=== PATIENT | female | born 1950 | race Caucasian/White ===

== ENCOUNTER 2018-11-25 06:31 | Emergency (ER) | payer MEDICARE, SELFPAY ==
[2018-11-25 06:41] VITALS: BP 157/78; PULSE 96; RESP 18; TEMP 37.1; O2SAT 97
--- NOTE | 2018-11-25 06:47 | DI.COMBO_ITS ---
SYMPTOM/DIAGNOSIS: FELL, HIT HEAD, PAIN, ? FX RIGHT SHOULDER: There is a fracture at the surgical neck of the humerus. There is displacement and angulation as well as small comminuted fragments. There is no evidence of dislocation on the two views performed. The AC joint appears intact. IMPRESSION: Humeral neck fracture. RIGHT HUMERUS: There is a fracture of the surgical neck of the humerus. There is some displacement as well as angulation. A few small comminuted fragments are seen. The distal humerus appears intact. IMPRESSION: Fracture of the surgical neck of the humerus. LEFT KNEE: No fracture or hemarthrosis is seen. There are minimal degenerative changes. IMPRESSION: No acute abnormality. NONCONTRAST HEAD CT: No intracranial hemorrhage or skull fracture is seen. There is no significant atrophy or white matter changes. The sinuses and mastoid air cells appear clear where visualized. IMPRESSION: Negative head CT. CERVICAL SPINE CT: There is no evidence of fracture. Degenerative disc changes are seen, greatest at C 4-5 through C 6-7. Facet joint degenerative changes are also present. No pneumothorax is seen at the lung apices. IMPRESSION: Degenerative changes. No acute abnormality.
--- NOTE | 2018-11-25 06:56 | ED.GENADUL_ITS ---
Discharge Plan Disposition Patient Disposition: HOME Condition: Stable Discharge Details Chief Complaint: Orthopedic Clinical Impression: Fracture, humerus Primary Care Provider: Arnoldo Lopez ED Provider: Alisa Romano Home Meds and New Rx's Prescriptions: New oxycodone-acetaminophen [Percocet] 5-325 mg tablet 0.5 tab PO Q6H Qty: 5 RF: 0 Continued multivitamin [Daily Multi-Vitamin] 1 EACH tablet 1 tab PO DAILY RF: 0 aspirin [Aspir-81] 81 MG tablet,delayed release (DR/EC) 1 tab PO DAILY RF: 0 acetaminophen [Mapap Extra Strength] 500 MG tablet 1 tab PO DAILY RF: 0 docusate sodium [Colace] 100 MG capsule 100 mg PO TID PRN PRNQty: 30 RF: 0 diltiazem HCl [Cartia XT] 180 mg Capsule,Extended Release 24hr 180 mg PO BID RF: 0 irbesartan 150 mg Tablet 150 mg PO DAILY RF: 0 Discharge Instructions Instructions: Oxycodone/Acetaminophen (By mouth), Arm Fracture in Adults (ED), How to Use a Sling (GEN) Additional Instructions: Please return immediately to the emergency department if you develop any new or worsening symptoms or if you become otherwise concerned. It is extremely important that you make an appointment to be seen by an orthopedic surgeon, and also by your primary care doctor soon as possible in follow-up for this visit. Please do not take any sedating medications while you are taking Percocet. Also, please do not take any additional Tylenol while you are taking Percocet. It was a pleasure participating in your care in the emergency department today. Stand Alone Forms: Work Release Referrals: Tato Holguin MD [ [facility] STAFF PHYSICIAN] - Arnoldo Lopez [Primary Care Provider] - Discharge Data Discharge Date/Time-TO BE ENTERED AT DEPARTURE: 11/25/18 10:57 Medical Decision Making <Mark Casey DO - Last Filed: 11/25/18 23:06> This is a 68-year-old female who presents for evaluation after fall. Patient was on her porch when she slipped and hit her head, her right shoulder and her left knee. Notable pain in the right shoulder, minimal pain in the left knee on exam. No abnormalities on intracranial exam. No significant ligamentous abnormalities for the left knee, no significant joint laxity. We will update the patient's tetanus year. Due to the mechanism, as well as the patient's age we will get x-rays of the left knee, right shoulder as well as head and C-spine. The patient does not want any narcotics at this time, and we will start with acetaminophen. Differential includes proximal humeral fracture, or other osseous abnormalities for the other tender locations. With no C-spine, thoracic or lumbar spine pain, as well as no signs of trauma for the head I feel the intracranial bleed is unlikely. 7:42 AM We are waiting for all imaging at this time. Case will be signed out to my colleague Dr. Romano. <Alisa Romano MD - Last Filed: 12/03/18 13:28> Patient signed out to me at time of shift change by Dr. Casey with CT head, CT cervical spine, right humerus/shoulder x-ray, left knee x-ray pending. Imaging shows right humeral neck fracture, no other acute process. On reexamination the patient, she is reporting worsening pain and would like something more than Tylenol. Patient concerned about adverse effects of opiate pain medication, will give 2.5 mg oxycodone. Orthopedic surgery paged. Dr. Cortes of orthopedic surgery, who recommends basic sling as opposed to cuff and collar, outpt f/u with ortho. Patient placed in sling. She walked to the bathroom without issue, reporting no other pain at this point other than pain in the upper right arm, which is improved after oxycodone and ibuprofen. Plan for Rx oxycodone, local pharmacies do not stock 2.5 mg tabs, instructed patient to cut 5 mg tabs in half. She does have a pill cutter at home. I had a lengthy discussion with the patient regarding safe opiate use, return to emergency department precautions, home care, and importance of outpatient follow-up with orthopedic surgery and with her primary care doctor soon as possible. She verbalized understanding of the plan and is amenable Medical Records Medical records reviewed: Yes I reviewed the patient's medical records. Imaging Data Radiologic Study: Attestation: I personally reviewed and interpreted this imaging study as follows: Radiologist's impression: TECHNIQUE: XR Right shoulder complete 2 or more views. COMPARISON: CR RIGHT SHOULDER COMPLETE 03/19/2014 11:08 AM CR - XR humerus RT 11/25/2018 7:23:26 AM FINDINGS: Bones/joints: As on the humerus radiographs, there is an acute fracture through the humeral neck. This is mildly comminuted and moderately displaced, with moderate impaction and mild medial angulation. No other fracture is identified. The glenohumeral joint is normally aligned. There is mild acromioclavicular arthrosis without widening. No focal lytic or blastic lesion is identified. Soft tissues: There is associated soft tissue swelling. IMPRESSION: 1. Acute femoral neck fracture. 2. Mild acromioclavicular arthrosis. EXAM: CT Head Without Contrast EXAM DATE/TIME: 11/25/2018 6:49 AM CLINICAL HISTORY: 68 years old, female; Injury or trauma; Fall; Initial encounter; Blunt trauma TECHNIQUE: Axial computed tomography images of the head/brain without contrast. Coronal and sagittal reformatted images were created and reviewed. COMPARISON: CT HEAD AND CSPINE W/O CONTRAST 03/19/2014 10:45 AM (report not provided) FINDINGS: Brain: Patchy lucencies in the white matter are nonspecific but most suggestive of chronic microvascular ischemic disease. There is no evidence for large acute cortical infarct. No intracranial hemorrhage or extraaxial collection is identified. There is no significant intracranial mass effect. Ventricles: The ventricles and sulci are mildly prominent, in concordance with mild global atrophy. Bones/joints: Normal. No acute fracture. Sinuses: Normal as visualized. No acute sinusitis. Mastoid air cells: Normal as visualized. No mastoid effusion. Soft tissues: Unremarkable. Vasculature: Intracranial atherosclerotic vascular calcifications are again present. IMPRESSION: No CT evidence for acute intracranial abnormality. EXAM: XR Left Knee, 3 Views EXAM DATE/TIME: 11/25/2018 6:49 AM CLINICAL HISTORY: 68 years old, female; Injury or trauma; Fall; Initial encounter; Blunt trauma; Knee; Left TECHNIQUE: XR Left knee 3 views. COMPARISON: No relevant prior studies available. FINDINGS: Bones/joints: No acute fracture or dislocation is identified. A very small superior patellar enthesophyte is present. Soft tissues: The soft tissues, including in the suprapatellar region, appear grossly unremarkable. Vasculature: Atherosclerotic vascular calcifications are noted. IMPRESSION: 1. No acute fracture or dislocation identified. 2. Very small superior patellar enthesophyte. HPI <Mark Casey, - Last Filed: 11/25/18 23:06> General Date/Time Provider Initiated Documentation: 11/25/18 06:37 . HPI Narrative: This is a pleasant 68-year-old female with a past medical history of hypertension who presents today for evaluation after a fall. She is not on any blood thinners except for daily aspirin. Patient states that yesterday at 8 PM she was shoveling her porch when she slipped, hit her head, left knee, and right shoulder. She had no loss of consciousness and she was able to get up by herself after this. She recalls the entire event. She denies any significant head pain, does admit to some mild left knee pain, but primarily complains of right shoulder pain. Pain in the shoulder and right knee are made worse with palpation and use. She is able to ambulate without significant pain. She denies any associated numbness tingling or weakness. She denies any vision changes, headache, nausea, vomiting, diarrhea. She has no other complaints at this time. No other modifying factors Related Data Home Medications Medication Instructions Recorded Confirmed acetaminophen [Mapap Extra 1 tab PO DAILY 03/19/14 12/03/18 Strength] aspirin [Aspir-81] 1 tab PO DAILY 03/19/14 12/03/18 multivitamin [Daily Multi-Vitamin] 1 tab PO DAILY 03/19/14 12/03/18 docusate sodium [Colace] 100 mg PO TID PRN PRN #30 cap 03/22/14 12/03/18 diltiazem HCl [Cartia XT] 180 mg PO BID 11/25/18 12/03/18 irbesartan 150 mg PO DAILY 11/25/18 12/03/18 oxycodone-acetaminophen [Percocet] 0.5 tab PO Q6H #5 tab 11/25/18 12/03/18 Previous Rx's Medication Instructions Recorded docusate sodium [Colace] 100 mg PO TID PRN PRN #30 cap 03/22/14 oxycodone-acetaminophen [Percocet] 0.5 tab PO Q6H #5 tab 11/25/18 Allergies Allergy/AdvReac Type Severity Reaction Status Date / Time aloe vera Allergy Intermediate Swelling/Ed Unverified 12/03/18 10:57 harlan wheat Allergy Intermediate Swelling/Ed Unverified 12/03/18 10:57 harlan papaya Allergy Mild Skin Rash Unverified 12/03/18 10:57 pineapple Allergy Mild Skin Rash Uncoded 12/03/18 10:57 General Stated Complaint: Orthopedic KAREL: 3 Review of Systems <Mark Casey DO - Last Filed: 11/25/18 23:06> Review of Systems All systems reviewed & are unremarkable except as noted in HPI and below PFSH <Mark Casey DO - Last Filed: 11/25/18 23:06> Social History Smoking/Tobacco Use Status: Current-Occasional Exam <Mark Casey DO - Last Filed: 11/25/18 23:06> Narrative Exam Narrative: 1.Const: Well-nourished, Well-developed, appearing stated age 2.Eyes: PERRL, no conjunctival injection, and symmetrical lids. 3.ENT: Atraumatic external nose and ears. Moist MM. Neck: Symmetric, trachea midline, No thyromegaly. There is no evidence of raccoon eyes, wright sign, CSF rhinorrhea, mastoid tenderness, cranial crepitus, hemotympanum, exophthalmos, or hyphema. Patient demonstrates intact dentition with no signs of tooth avulsion or fracture, no signs of jaw deformity, no evidence of a LeFort's fracture, with an intact palate, nose and orbital region. There is no evidence of a nasal septal hematoma. No proptosis. Jaw closes symmetrically. Airway is clear. 4.CVS: +S1/S2, No murmurs or gallops. Peripheral pulses 2+ and equal in all extremities. Brisk capillary refill in all extremities. 5.RESP: Unlabored respiratory effort. Clear to auscultation bilaterally. No wheezes rales or rhonchi 6.GI: Soft, Nontender/Nondistended, No hepatosplenomegaly. No guarding or rebound. 7.MSK: Normocephalic, Extremities w/o deformity. No cyanosis or clubbing, right upper extremity demonstrates notable pain and tenderness on palpation of the right shoulder over all aspects, as well as the proximal humerus. No evidence of significant deformity. Patient demonstrates good flexion extension at the elbow, brisk capillary refill in both hands, and normal sensation including excellent two-point discrimination in the hands and fingers bilaterally. Radial pulses are +2 bilaterally. There is a mild abrasion over the patient's left knee. Mild pain with movement on anterior drawer testing. No pain with varus or valgus stressing. Mild pain on palpation over the knee/patella. No deformity, excellent 5 out of 5 plantar dorsiflexion strength. Sensation is intact distally to the knee bilaterally. Dorsalis pedis pulses present. Good capillary refill. No midline C-spine tenderness. No tenderness on palpation of the scalp. No evidence of abrasions or bruise. 8.Skin: Warm, Dry. No rashes or lesions. Small abrasion over the left knee. 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 Sensation grossly intact, no focal neurologic deficits. 10.Psych: (AAO) x3. Appropriate mood and affect Course <Mark Casey DO - Last Filed: 11/25/18 23:06> Vital Signs Temperature 37.1 C 11/25/18 06:41 Pulse 96 H 11/25/18 06:41 Respiratory Rate 18 11/25/18 06:41 Blood Pressure 157/78 H 11/25/18 06:41 Pulse Oximetry 97 11/25/18 06:41 Temperature 37.1 C 11/25/18 06:41 Temperature Source Temporal Artery Scan 11/25/18 06:41 Pulse 96 H 11/25/18 06:41 Respiratory Rate 18 11/25/18 06:41 Respiratory Effort 11/25/18 06:41 Blood Pressure 157/78 H 11/25/18 06:41 Pulse Oximetry 97 11/25/18 06:41 Oxygen Delivery Method Room Air 11/25/18 06:41 Oxygen Flow Rate 0 11/25/18 06:41 Pain Level 10 11/25/18 06:41 Sign Out <Mark Casey DO - Last Filed: 11/25/18 23:06> Sign Out Data: Sign Out Comment: pending rad results, concern for humerus fx Last updated by Mark Casey DO at 11/25/18 07:45
[2018-11-25] MEDS: Acetaminophen 500 MG TAB 1000 MG PO (07:00)
--- NOTE | 2018-11-25 07:48 | DI.VRAD_ITS ---
EXAM: CT Head Without Contrast EXAM DATE/TIME: 11/25/2018 6:49 AM CLINICAL HISTORY: 68 years old, female; Injury or trauma; Fall; Initial encounter; Blunt trauma TECHNIQUE: Axial computed tomography images of the head/brain without contrast. Coronal and sagittal reformatted images were created and reviewed. COMPARISON: CT HEAD AND CSPINE W/O CONTRAST 03/19/2014 10:45 AM (report not provided) FINDINGS: Brain: Patchy lucencies in the white matter are nonspecific but most suggestive of chronic microvascular ischemic disease. There is no evidence for large acute cortical infarct. No intracranial hemorrhage or extraaxial collection is identified. There is no significant intracranial mass effect. Ventricles: The ventricles and sulci are mildly prominent, in concordance with mild global atrophy. Bones/joints: Normal. No acute fracture. Sinuses: Normal as visualized. No acute sinusitis. Mastoid air cells: Normal as visualized. No mastoid effusion. Soft tissues: Unremarkable. Vasculature: Intracranial atherosclerotic vascular calcifications are again present. IMPRESSION: No CT evidence for acute intracranial abnormality. EXAM: CT Cervical Spine Without Contrast EXAM DATE/TIME: 11/25/2018 6:49 AM CLINICAL HISTORY: 68 years old, female; Injury or trauma; Fall; Initial encounter; Blunt trauma TECHNIQUE: Axial computed tomography images of the cervical spine without intravenous contrast. All CT scans at this facility use at least one of these dose optimization techniques: automated exposure control; mA and/or kV adjustment per patient size (includes targeted exams where dose is matched to clinical indication); or iterative reconstruction. Coronal and sagittal reformatted images were created and reviewed. COMPARISON: CT HEAD AND CSPINE W/O CONTRAST 03/19/2014 10:45 AM (report not provided) FINDINGS: Vertebral body heights are intact. Alignment is maintained. No acute fracture is identified. The prevertebral soft tissues are not significantly swollen. The lung apices are not included. There is multilevel spondylosis with variable osteophytic encroachment of several neural foramina. This appears generally mildly progressive. CT is not optimal for the evaluation of the discs, neural foramina or spinal canal or cord. Question spinal stenosis at C5-6. IMPRESSION: 1. No acute fracture or dislocation identified. 2. Spondylosis with question of spinal stenosis at C5-6. The discs and integrity of the cord could be better evaluated by means of MRI as clinically appropriate. Dictated and Authenticated by: Riki Ballard MD. Ordering:ONI Flores MD
--- NOTE | 2018-11-25 07:52 | DI.VRAD_ITS ---
EXAM: XR Right Humerus, 2 or More Views EXAM DATE/TIME: 11/25/2018 6:49 AM CLINICAL HISTORY: 68 years old, female; Injury or trauma; Fall; Initial encounter; Blunt trauma (contusions or hematomas; Arm, upper; Right TECHNIQUE: XR Right humerus 2 or more views. COMPARISON: No relevant prior studies available. FINDINGS: Bones/joints: There is an acute, mildly displaced and comminuted fracture through the humeral neck. No other fracture is identified. Soft tissues: There is mild associated soft tissue swelling. IMPRESSION: Acute humeral neck fracture. Dictated and Authenticated by: Riki Ballard MD. Ordering:ONI Flores MD
--- NOTE | 2018-11-25 07:54 | DI.VRAD_ITS ---
EXAM: XR Left Knee, 3 Views EXAM DATE/TIME: 11/25/2018 6:49 AM CLINICAL HISTORY: 68 years old, female; Injury or trauma; Fall; Initial encounter; Blunt trauma; Knee; Left TECHNIQUE: XR Left knee 3 views. COMPARISON: No relevant prior studies available. FINDINGS: Bones/joints: No acute fracture or dislocation is identified. A very small superior patellar enthesophyte is present. Soft tissues: The soft tissues, including in the suprapatellar region, appear grossly unremarkable. Vasculature: Atherosclerotic vascular calcifications are noted. IMPRESSION: 1. No acute fracture or dislocation identified. 2. Very small superior patellar enthesophyte. Dictated and Authenticated by: Riki Ballard MD. Ordering:ONI Flores MD
--- NOTE | 2018-11-25 07:56 | DI.VRAD_ITS ---
EXAM: XR Right Shoulder Complete, 2 or More Views EXAM DATE/TIME: 11/25/2018 7:48 AM CLINICAL HISTORY: 68 years old, female; Injury or trauma; Fall; Initial encounter; Blunt trauma (contusions or hematomas; Shoulder; Right TECHNIQUE: XR Right shoulder complete 2 or more views. COMPARISON: CR RIGHT SHOULDER COMPLETE 03/19/2014 11:08 AM CR - XR humerus RT 11/25/2018 7:23:26 AM FINDINGS: Bones/joints: As on the humerus radiographs, there is an acute fracture through the humeral neck. This is mildly comminuted and moderately displaced, with moderate impaction and mild medial angulation. No other fracture is identified. The glenohumeral joint is normally aligned. There is mild acromioclavicular arthrosis without widening. No focal lytic or blastic lesion is identified. Soft tissues: There is associated soft tissue swelling. IMPRESSION: 1. Acute femoral neck fracture. 2. Mild acromioclavicular arthrosis. Dictated and Authenticated by: Riki Ballard MD. Ordering:ONI Flores MD
--- NOTE | 2018-11-25 08:53 | W.ED.FU ---
Patient signed out to me at time of shift change by Dr. Casey with CT head, CT cervical spine, right humerus/shoulder x-ray, left knee x-ray pending. Imaging shows right humeral neck fracture, no other acute process. On reexamination the patient, she is reporting worsening pain and would like something more than Tylenol. Plan for oxycodone. Orthopedic surgery paged.
[2018-11-25] MEDS: oxyCODONE 5 MG TAB PO (09:04)
[2018-11-25] MEDS: Ondansetron O.D.T. 4 MG TABEF PO (09:05)
[2018-11-25 09:46] VITALS: BP 142/71; PULSE 84; RESP 16; TEMP 37; O2SAT 92
[2018-11-25] MEDS: Ibuprofen 400 MG TAB PO (10:48)
== END 2018-11-25 10:57 | disposition home or self-care (01) ==
PROVIDERS: Emergency Provider Student in an Organized Health Care Education/Training Program; PCP Neuromusculoskeletal Medicine & OMM
DX: S42.211A Unspecified displaced fracture of surgical neck of right humerus, initial encounter for closed fracture (principal); M25.561 Pain in right knee; S09.90XA Unspecified injury of head, initial encounter; W01.198A Fall on same level from slipping, tripping and stumbling with subsequent striking against other object, initial encounter; Y93.H1 Activity, digging, shoveling and raking; E11.9 Type 2 diabetes mellitus without complications; I10 Essential (primary) hypertension
CPT/HCPCS: 23600; 73562; 90471; 99284; 70450; 72125; 73020; 73060; 99283; L3650

== ENCOUNTER 2018-12-03 11:07 | Outpatient (CLI) | payer MEDICARE, SELFPAY ==
--- NOTE | 2018-12-03 11:03 | DI.RAD_ITS ---
SYMPTOMS/DIAGNOSIS: F/U FX RIGHT SHOULDER: Comparison is made with [id number]. There is a question of increased lucency around the comminuted fracture of the proximal humerus when compared with the previous exam vs differences in projection. There is also apparent inferior subluxation of the humeral head when compared with the previous exam.
== END 2018-12-03 11:27 ==
PROVIDERS: PCP Neuromusculoskeletal Medicine & OMM; Referring Provider Neuromusculoskeletal Medicine & OMM; Visit Provider Orthopaedic Surgery
DX: S42.221A 2-part displaced fracture of surgical neck of right humerus, initial encounter for closed fracture (principal); W01.0XXA Fall on same level from slipping, tripping and stumbling without subsequent striking against object, initial encounter
CPT/HCPCS: 99201; 99213; 73030

== ENCOUNTER 2018-12-31 10:13 | Outpatient (CLI) | payer MEDICARE, SELFPAY ==
--- NOTE | 2018-12-31 10:10 | DI.RAD_ITS ---
SYMPTOMS/DIAGNOSIS: FOLLOW UP RIGHT SHOULDER: Comparison is made with [id number]. Two views were performed. There is a question of increased displacement of the proximal humeral fracture vs differences in projection when compared with the previous exam. Mild inferior subluxation of the humeral head relative to the glenoid is unchanged.
== END 2018-12-31 10:33 ==
PROVIDERS: PCP Neuromusculoskeletal Medicine & OMM; Referring Provider Neuromusculoskeletal Medicine & OMM; Visit Provider Orthopaedic Surgery
DX: S42.224D 2-part nondisplaced fracture of surgical neck of right humerus, subsequent encounter for fracture with routine healing (principal); W01.0XXD Fall on same level from slipping, tripping and stumbling without subsequent striking against object, subsequent encounter
CPT/HCPCS: 99213; 73030

== ENCOUNTER 2019-01-28 10:31 | Outpatient (CLI) | payer MEDICARE, SELFPAY ==
--- NOTE | 2019-01-28 10:28 | DI.RAD_ITS ---
SYMPTOMS/DIAGNOSIS: F/U FX RIGHT SHOULDER: When compared with the prior examination of 12/31/18, again noted is the comminuted fracture of the proximal humerus. There has been no change in the status of the fracture when compared with the previous images.
== END 2019-01-28 10:51 ==
PROVIDERS: PCP Neuromusculoskeletal Medicine & OMM; Referring Provider Neuromusculoskeletal Medicine & OMM; Visit Provider Orthopaedic Surgery
DX: S42.224D 2-part nondisplaced fracture of surgical neck of right humerus, subsequent encounter for fracture with routine healing; X58.XXXD Exposure to other specified factors, subsequent encounter
CPT/HCPCS: 99211; 99212; 73030

== ENCOUNTER 2019-02-25 11:43 | Outpatient (CLI) | payer MEDICARE, SELFPAY ==
--- NOTE | 2019-02-25 10:35 | DI.RAD_ITS ---
SYMPTOMS/DIAGNOSIS: F/U RIGHT PROXIMAL HUMERAL FRACTURE RIGHT SHOULDER: Two views. Comparison is 01/28/19. There has been no change in alignment or appearance of the fracture involving the proximal right humerus. No new fractures or dislocations are appreciated. Degenerative changes are seen at the acromioclavicular joint.
== END 2019-02-25 12:03 ==
PROVIDERS: PCP Neuromusculoskeletal Medicine & OMM; Referring Provider Neuromusculoskeletal Medicine & OMM; Visit Provider Orthopaedic Surgery
DX: S42.224D 2-part nondisplaced fracture of surgical neck of right humerus, subsequent encounter for fracture with routine healing (principal); X58.XXXD Exposure to other specified factors, subsequent encounter
CPT/HCPCS: 99212; 99213; 73030

== ENCOUNTER 2019-04-22 10:27 | Outpatient (CLI) | payer MEDICARE, SELFPAY ==
--- NOTE | 2019-04-22 10:23 | DI.RAD_ITS ---
SYMPTOM/DIAGNOSIS: F/U RIGHT HUMERAL FRACTURE RIGHT SHOULDER: Comparison is made with 25 February 2019 Again noted is a nonunited fracture of the proximal humerus. There is further separation of the fracture fragments when compared with previous exams. There is continued inferior subluxation of the humeral head.
== END 2019-04-22 10:47 ==
PROVIDERS: PCP Neuromusculoskeletal Medicine & OMM; Referring Provider Neuromusculoskeletal Medicine & OMM; Visit Provider Orthopaedic Surgery
DX: S42.201K Unspecified fracture of upper end of right humerus, subsequent encounter for fracture with nonunion; X58.XXXD Exposure to other specified factors, subsequent encounter; I10 Essential (primary) hypertension; E11.9 Type 2 diabetes mellitus without complications
CPT/HCPCS: 99213; 73030

== ENCOUNTER 2019-05-01 10:09 | Emergency (ER) | payer MEDICARE, SELFPAY ==
[2019-05-01 10:15] VITALS: BP 181/94; PULSE 91; RESP 16; TEMP 36.7; O2SAT 98
--- NOTE | 2019-05-01 10:25 | W.ED.GENAD ---
Discharge Plan Disposition Patient Disposition: HOME Discharge Details Chief Complaint: Laceration Clinical Impression: Laceration of earlobe Primary Care Provider: Arnoldo Lopez ED Provider: Alexey Romano Home Meds and New Rx's Prescriptions: Continued multivitamin [Daily Multi-Vitamin] 1 EACH tablet 1 tab PO DAILY RF: 0 aspirin [Aspir-81] 81 MG tablet,delayed release (DR/EC) 1 tab PO DAILY RF: 0 acetaminophen [Mapap Extra Strength] 500 MG tablet 1 tab PO DAILY RF: 0 docusate sodium [Colace] 100 MG capsule 100 mg PO TID PRN PRNQty: 30 RF: 0 diltiazem HCl [Cartia XT] 180 mg Capsule,Extended Release 24hr 360 mg PO DAILY RF: 0 irbesartan 150 mg Tablet 150 mg PO DAILY RF: 0 Discharge Instructions Instructions: Skin Adhesive Care (ED) Additional Instructions: Please contact your primary care physician to arrange follow-up. Return to the ER for any worsening or new concerning symptoms. Referrals: Arnoldo Lopez [Primary Care Provider] - Medical Decision Making 68-year-old female here with tiny laceration right earlobe with venous bleeding. LET applied with direct pressure. Bleeding controlled. Wound closed with skin adhesive. Hemostasis achieved. Tetanus is up-to-date. Usual and customary discharge instructions were provided. HPI General Mode of arrival: ambulatory. Date/Time Provider Initiated Documentation: 05/01/19 10:18. Limitations to Documentation: no limitations. Information obtained by: patient. HPI Narrative: 68-year-old female on aspirin here with laceration to right earlobe. Patient notes that she smacked her right ear and attempt to kill a flying insect that landed on her ear and she sustained laceration that has been bleeding. This occurred just prior to arrival. Bleeding has been heavy and persisting. Bleeding improved with holding pressure. No sensation of foreign body in the ear. Related Data Home Medications Medication Instructions Recorded Confirmed acetaminophen [Mapap Extra 1 tab PO DAILY 03/19/14 05/01/19 Strength] aspirin [Aspir-81] 1 tab PO DAILY 03/19/14 05/01/19 multivitamin [Daily Multi-Vitamin] 1 tab PO DAILY 03/19/14 05/01/19 docusate sodium [Colace] 100 mg PO TID PRN PRN #30 cap 03/22/14 05/01/19 diltiazem HCl [Cartia XT] 360 mg PO DAILY 11/25/18 05/01/19 irbesartan 150 mg PO DAILY 11/25/18 05/01/19 Previous Rx's Medication Instructions Recorded docusate sodium [Colace] 100 mg PO TID PRN PRN #30 cap 03/22/14 Allergies Allergy/AdvReac Type Severity Reaction Status Date / Time aloe vera Allergy Intermediate Swelling/Ed Unverified 05/01/19 10:18 harlan wheat Allergy Intermediate Swelling/Ed Unverified 05/01/19 10:18 harlan papaya Allergy Mild Skin Rash Unverified 05/01/19 10:18 pineapple Allergy Mild Skin Rash Uncoded 05/01/19 10:18 General Stated Complaint: RashLesion KAREL: 4 Review of Systems Integumentary/Breasts Reports as per HPI Hematologic/Lymphatic Denies easy bleeding and Denies easy bruising PFSH Social History Smoking/Tobacco Use Status: Current-Occasional Drug use: Never Do you feel safe in your relationship?: Yes Exam Const General: cooperative and healthy appearing Orientation: alert and awake HENMT Ears: TM normal on the right, EAC's normal (rt) and external ear abnormal (2 mm laceration right inner earlobe with venous bleeding) Skin Trauma: laceration (as noted above) Neuro General: alert and awake Cognition: normal cognition Course Vital Signs Temperature 36.7 C 05/01/19 10:15 Pulse 91 H 05/01/19 10:15 Respiratory Rate 16 05/01/19 10:15 Blood Pressure 181/94 H 05/01/19 10:15 Pulse Oximetry 98 05/01/19 10:15 Temperature 36.7 C 05/01/19 10:15 Pulse 91 H 05/01/19 10:15 Respiratory Rate 16 05/01/19 10:15 Respiratory Effort Non-Labored 05/01/19 10:15 Blood Pressure 181/94 H 05/01/19 10:15 Blood Pressure Position Sitting 05/01/19 10:15 Pulse Oximetry 98 05/01/19 10:15 Oxygen Delivery Method Room Air 05/01/19 10:15 Oxygen Flow Rate 0 05/01/19 10:15 Pain Level 0 05/01/19 10:15 Procedures Laceration Laceration 1: Site: other (ear) Side (If applicable): right Size (cm): 0.1 Description: other (punctate) Depth: simple, single layer Local Anesthetic: other anesthetic Skin layer closed with: other (skin adhesive)
--- NOTE | 2019-05-01 10:29 | ED.GENADUL_ITS ---
Discharge Plan Disposition Patient Disposition: HOME Discharge Details Chief Complaint: Laceration Clinical Impression: Laceration of earlobe Primary Care Provider: Arnoldo Lopez ED Provider: Alexey Romano Home Meds and New Rx's Prescriptions: Continued multivitamin [Daily Multi-Vitamin] 1 EACH tablet 1 tab PO DAILY RF: 0 aspirin [Aspir-81] 81 MG tablet,delayed release (DR/EC) 1 tab PO DAILY RF: 0 acetaminophen [Mapap Extra Strength] 500 MG tablet 1 tab PO DAILY RF: 0 docusate sodium [Colace] 100 MG capsule 100 mg PO TID PRN PRNQty: 30 RF: 0 diltiazem HCl [Cartia XT] 180 mg Capsule,Extended Release 24hr 360 mg PO DAILY RF: 0 irbesartan 150 mg Tablet 150 mg PO DAILY RF: 0 Discharge Instructions Instructions: Skin Adhesive Care (ED) Additional Instructions: Please contact your primary care physician to arrange follow-up. Return to the ER for any worsening or new concerning symptoms. Referrals: Arnoldo Lopez [Primary Care Provider] - Medical Decision Making 68-year-old female here with tiny laceration right earlobe with venous bleeding. LET applied with direct pressure. Bleeding controlled. Wound closed with skin adhesive. Hemostasis achieved. Tetanus is up-to-date. Usual and customary discharge instructions were provided. HPI General Mode of arrival: ambulatory . Date/Time Provider Initiated Documentation: 05/01/19 10:18 . Limitations to Documentation: no limitations . Information obtained by: patient . HPI Narrative: 68-year-old female on aspirin here with laceration to right earlobe. Patient notes that she smacked her right ear and attempt to kill a flying insect that landed on her ear and she sustained laceration that has been bleeding. This occurred just prior to arrival. Bleeding has been heavy and persisting. Bleeding improved with holding pressure. No sensation of foreign body in the ear. Related Data Home Medications Medication Instructions Recorded Confirmed acetaminophen [Mapap Extra 1 tab PO DAILY 03/19/14 05/01/19 Strength] aspirin [Aspir-81] 1 tab PO DAILY 03/19/14 05/01/19 multivitamin [Daily Multi-Vitamin] 1 tab PO DAILY 03/19/14 05/01/19 docusate sodium [Colace] 100 mg PO TID PRN PRN #30 cap 03/22/14 05/01/19 diltiazem HCl [Cartia XT] 360 mg PO DAILY 11/25/18 05/01/19 irbesartan 150 mg PO DAILY 11/25/18 05/01/19 Previous Rx's Medication Instructions Recorded docusate sodium [Colace] 100 mg PO TID PRN PRN #30 cap 03/22/14 Allergies Allergy/AdvReac Type Severity Reaction Status Date / Time aloe vera Allergy Intermediate Swelling/Ed Unverified 05/01/19 10:18 harlan wheat Allergy Intermediate Swelling/Ed Unverified 05/01/19 10:18 harlan papaya Allergy Mild Skin Rash Unverified 05/01/19 10:18 pineapple Allergy Mild Skin Rash Uncoded 05/01/19 10:18 General Stated Complaint: RashLesion KAREL: 4 Review of Systems Integumentary/Breasts Reports as per HPI Hematologic/Lymphatic Denies easy bleeding and Denies easy bruising PFSH Social History Smoking/Tobacco Use Status: Current-Occasional Drug use: Never Do you feel safe in your relationship?: Yes Exam Const General: cooperative and healthy appearing Orientation: alert and awake HENMT Ears: TM normal on the right, EAC's normal (rt) and external ear abnormal (2 mm laceration right inner earlobe with venous bleeding) Skin Trauma: laceration (as noted above) Neuro General: alert and awake Cognition: normal cognition Course Vital Signs Temperature 36.7 C 05/01/19 10:15 Pulse 91 H 05/01/19 10:15 Respiratory Rate 16 05/01/19 10:15 Blood Pressure 181/94 H 05/01/19 10:15 Pulse Oximetry 98 05/01/19 10:15 Temperature 36.7 C 05/01/19 10:15 Pulse 91 H 05/01/19 10:15 Respiratory Rate 16 05/01/19 10:15 Respiratory Effort Non-Labored 05/01/19 10:15 Blood Pressure 181/94 H 05/01/19 10:15 Blood Pressure Position Sitting 05/01/19 10:15 Pulse Oximetry 98 05/01/19 10:15 Oxygen Delivery Method Room Air 05/01/19 10:15 Oxygen Flow Rate 0 05/01/19 10:15 Pain Level 0 05/01/19 10:15 Procedures Laceration Laceration 1: Site: other (ear) Side (If applicable): right Size (cm): 0.1 Description: other (punctate) Depth: simple, single layer Local Anesthetic: other anesthetic Skin layer closed with: other (skin adhesive)
[2019-05-01] MEDS: Lidocaine/Epinephri/Tetracaine Topical Gel 3 ML TP (11:15)
== END 2019-05-01 11:52 | disposition home or self-care (01) ==
PROVIDERS: Emergency Provider Student in an Organized Health Care Education/Training Program; PCP Neuromusculoskeletal Medicine & OMM
DX: S01.311A Laceration without foreign body of right ear, initial encounter (principal); Z79.82 Long term (current) use of aspirin; X58.XXXA Exposure to other specified factors, initial encounter
CPT/HCPCS: 12011

== ENCOUNTER 2021-02-08 09:02 | Emergency (ER) | payer MEDICARE, SELFPAY ==
[2021-02-08 09:07] VITALS: BP 156/76; PULSE 96; RESP 16; TEMP 36.7; O2SAT 98
--- NOTE | 2021-02-08 09:24 | ED.GENADUL_ITS ---
Discharge Plan Disposition Patient Disposition: HOME Condition: Stable Discharge Details Clinical Impression: Abrasion of ear Primary Care Provider: Arnoldo Lopez ED Provider: Wilmer Moore Home Meds and New Rx's Prescriptions: Continued cholecalciferol (vitamin D3) 2,000 unit capsule 2,000 unit PO DAILY RF: 0 calcium pantothenate 500 mg tablet 500 mg PO DAILY RF: 0 multivitamin [Daily Multi-Vitamin] 1 EACH tablet 1 tab PO DAILY RF: 0 aspirin [Aspir-81] 81 MG tablet,delayed release (DR/EC) 1 tab PO DAILY RF: 0 acetaminophen [Mapap Extra Strength] 500 MG tablet 1 tab PO DAILY RF: 0 docusate sodium [Colace] 100 MG capsule 100 mg PO TID PRN PRNQty: 30 RF: 0 diltiazem HCl [Cartia XT] 180 mg Capsule,Extended Release 24hr 360 mg PO DAILY RF: 0 irbesartan 150 mg Tablet 150 mg PO DAILY RF: 0 Discharge Instructions Instructions: Abrasion (ED) Additional Instructions: Dermabond applied to the ear abrasion without difficulty. Bleeding is controlled. Dermabond will come off on its own in the next 5-7 days. Please watch for new or worsening symptoms and return to the ER for any concerns Medical Decision Making 70-year-old female presents for right ear abrasion. She denies chronic anticoagulation. Has no additional concerns or complaints. She was able to get the bleeding controlled on her own but is requesting that Dermabond be applied. Patient appears well, stable, nontoxic. Hemodynamically stable. No petechiae rash. Will place Dermabond on the abrasion. Medical Records Medical records reviewed: Yes I reviewed the patient's medical records. HPI General Mode of arrival: ambulatory . Date/Time Provider Initiated Documentation: 02/08/21 09:02 . Limitations to Documentation: no limitations . Information obtained by: patient . HPI Narrative: This is a 70-year-old female, takes a baby aspirin daily, presenting for a right ear abrasion. She states that 1 year ago she accidentally cut her ear, had difficulty stopping the bleeding, and required Dermabond. Today while in the shower she must have accidentally struck her ear. She noticed blood, was able to control the bleeding with pressure but is requesting that we applied Dermabond so that it does not begin bleeding again. She denies any other concerns or complaints. Denies ear pain or drainage. She denies easy bleeding or bruising. No addition al concerns or complaints. Related Data Home Medications Medication Instructions Recorded Confirmed acetaminophen [Mapap Extra 1 tab PO DAILY 03/19/14 02/08/21 Strength] aspirin [Aspir-81] 1 tab PO DAILY 03/19/14 02/08/21 multivitamin [Daily Multi-Vitamin] 1 tab PO DAILY 03/19/14 02/08/21 docusate sodium [Colace] 100 mg PO TID PRN PRN #30 cap 03/22/14 02/08/21 diltiazem HCl [Cartia XT] 360 mg PO DAILY 11/25/18 02/08/21 irbesartan 150 mg PO DAILY 11/25/18 02/08/21 calcium pantothenate 500 mg tablet 500 mg PO DAILY 06/11/19 02/08/21 cholecalciferol (vitamin D3) 50 2,000 unit PO DAILY 06/11/19 02/08/21 mcg (2,000 unit) capsule Previous Rx's Medication Instructions Recorded docusate sodium [Colace] 100 mg PO TID PRN PRN #30 cap 03/22/14 Allergies Allergy/AdvReac Type Severity Reaction Status Date / Time aloe vera Allergy Intermediate Swelling/Ed Unverified 02/08/21 09:09 harlan wheat Allergy Intermediate Swelling/Ed Unverified 02/08/21 09:09 harlan papaya Allergy Mild Skin Rash Unverified 02/08/21 09:09 pineapple Allergy Mild Skin Rash Uncoded 02/08/21 09:09 General Stated Complaint: Laceration KAREL: 4 Review of Systems Constitutional Constitutional: Denies fever(s) ENT Ears, Nose, Mouth, and Throat: Denies ear discharge and Denies otalgia Hematologic/Lymphatic Hematologic/Lymphatic: Denies easy bleeding and Denies easy bruising [facility] Medical History Pelvic organ prolapse quantification stage 4 rectocele Rx with surgery at [facility] [place] [facility] U[facility] 08/2019. Surgical History H/O vaginal surgery 09/23/19. Colpocleisis with vaginectomy to treat POP. Hx of bilateral oophorectomy in her 30's at time of hysterectomy for endometriosis. On progesterone replacement after surgery. Social History Smoking/Tobacco Use Status: Former Tobacco Use Smoking risk assessment performed?: Yes Alcohol Intake: current Alcohol Intake frequency: 0-2 drinks per day Drug use: Never Substance use type: does not use Household members: other Details: lives alone Number of Children: 1 current occupation: retired secretary [employer] Do you feel safe at home: Yes Do you feel safe in your relationship?: Yes Victim of sexual abuse: No Additional Social history: Daughter is Ana. 45yo lives locally. Female Reproductive History Menstrual Menopause type: surgical (1997. Treatment of endometriosis) History History 1 Para Hx # Term Pregnancies 1 Multiple births Hx # Pregnancies Ectopic pregnancies AB induced Hx Number of Living Children AB spontaneous Exam Const General: cooperative, healthy appearing, comfortable and no acute distress Orientation: alert, awake and oriented x3 HENMT Head: normal to inspection, no palpable skull fracture, normocephalic and atraumatic Ears: TM's normal bilaterally and EAC's normal Outer ear/TM images: 1. Abrasion. No tenderness or bleeding. No erythema, warmth. Face and sinus: normal facial exam Mouth: moist mucous membranes Eyes General: appearance normal, both eyes and all related structures Conjunctivae: conjunctivae normal Neck Neck: normal visual inspection, full ROM, trachea midline and supple Resp Effort & Inspection: normal respiratory effort and able to speak in complete sentences Skin General skin exam: no rashes or lesions noted Neuro General: patient alert, patient awake, moves all extremities and no focal motor deficits Sensory Exam: no sensory deficits noted Psych Appearance: grossly normal Mental Status: mental status grossly normal Course Vital Signs Vital signs: Vital Signs Temperature 36.7 C 02/08/21 09:07 Pulse 96 H 02/08/21 09:07 Respiratory Rate 16 02/08/21 09:07 Blood Pressure 156/76 H 02/08/21 09:07 Pulse Oximetry 98 02/08/21 09:07 Temperature 36.7 C 02/08/21 09:07 Temperature Source Skin 02/08/21 09:07 Pulse 96 H 02/08/21 09:07 Respiratory Rate 16 02/08/21 09:07 Respiratory Effort 02/08/21 09:12 Blood Pressure 156/76 H 02/08/21 09:07 Blood Pressure Position Sitting 02/08/21 09:07 Pulse Oximetry 98 02/08/21 09:07 Oxygen Delivery Method Room Air 02/08/21 09:07 Oxygen Flow Rate 0 02/08/21 09:07 Pain Level 0 02/08/21 09:07 Procedures Other Description: Dermabond applied to right ear abrasion. Patient tolerated well without complication
== END 2021-02-08 09:40 | disposition home or self-care (01) ==
PROVIDERS: Emergency Provider Physician Assistant; PCP Neuromusculoskeletal Medicine & OMM
DX: S00.411A Abrasion of right ear, initial encounter (principal); X58.XXXA Exposure to other specified factors, initial encounter
CPT/HCPCS: 12011

== ENCOUNTER 2023-04-09 13:15 | Outpatient (REF) | payer MEDICARE, SELFPAY ==
[2023-04-09 16:20] LABS: Bacteria Rare HPF (Negative); C & S Indicated? C&S Done As Ordered; Casts Negative LPF (Negative); Crystals Negative HPF (Negative); Epithelial Cells Few HPF (Negative); Mucus Negative (Negative); RBC 0-2 HPF (0-2); WBC 0-2 HPF (0-5)
== END 2023-04-09 13:16 | disposition home or self-care (01) ==
LOC: LBN 13:15
PROVIDERS: PCP Neuromusculoskeletal Medicine & OMM; Visit Provider Physician Assistant Medical
DX: R10.30 Lower abdominal pain, unspecified (principal); R39.89 Other symptoms and signs involving the genitourinary system
CPT/HCPCS: 81015; 87086

== ENCOUNTER 2024-07-16 17:19 | Outpatient (REF) | payer MEDICARE, SELFPAY ==
[2024-07-16 16:20] LABS: Anion Gap 8.1 mmol/L (3-11); BUN 12 mg/dL (7-18); CO2 26.9 mmol/L (21.0-32.0); CREATININE 0.7 mg/dL (0.55-1.02); Calcium 9.3 mg/dL (8.5-10.1); Chloride 92 mmol/L (98-107); Estimated GFR 89.58 (mL/min/1.73m2); Glucose 208 mg/dL (74-106); Magnesium 1.8 mg/dL (1.8-2.4); Potassium 4.6 mmol/L (3.5-5.1); Sodium 127 mmol/L (136-145)
[2024-07-16 17:55] LABS: COMMENT (LAB VIEW ONLY) 33.96 mg/dL; Microalb ug/mg Crea 20.9 ug/mg Cr
== END 2024-07-16 17:20 | disposition home or self-care (01) ==
LOC: NCHCN 17:19
PROVIDERS: PCP Neuromusculoskeletal Medicine & OMM; Visit Provider Student in an Organized Health Care Education/Training Program
DX: I10 Essential (primary) hypertension (principal); E11.9 Type 2 diabetes mellitus without complications
CPT/HCPCS: 80048; 82043; 82570; 83735

== ENCOUNTER 2024-07-28 15:37 | Outpatient (CLI) | payer MEDICARE, SELFPAY ==
[2024-07-28 15:26] LABS: Anion Gap 11.4 mmol/L (3-11); BUN 12 mg/dL (7-18); CO2 26.6 mmol/L (21.0-32.0); CREATININE 0.9 mg/dL (0.55-1.02); Chloride 94 mmol/L (98-107); Estimated GFR 66.26 (mL/min/1.73m2); Glucose 209 mg/dL (74-106); Potassium 3.4 mmol/L (3.5-5.1); Sodium 132 mmol/L (136-145)
--- OUTSIDE RECORDS SUMMARY | 2024-07-28 15:42 | XMS_ITS | Encounter Summary ---
Author Organization [facility] [place] [address] Care Team Providers Care Civil Preparedness Coordinator Name Role Phone Priti Navarro MD Primary Care Provider [phone] Reason for Visit * Reason Comments Tachycardia Encounter Details Date Type Department Care Team (Late st Contact Info) Description 12/29/2011 2:30 PM EST Office Visit [address] [phone] Lukasz Jo MD [facility] [place] [address] Tachycardia (Primary Dx) Social History Tobacco Use Types Packs/Day Years Used Date Smoking Tobacco: Never Assessed Sex and Gender Information Value Date Recorded Sex Assigned at Not on file Gender Identity Not on file Sexual Orientation Not on file documented as of this encounter Progress Notes * Kenneth Paul - 01/01/2012 11:41 AM EST * Lukasz Jo - 12/29/2011 2:20 PM EST Subjective: Patient ID: Evita Aguiar is a 61 y.o. female. HPI ROS Objective: Physical Exam Assessment and Plan: No problem-specific visit notes found for this encounter. Scanned note documented in this encounter Plan of Treatment Not on file documented as of this encounter Visit Diagnoses Diagnosis Tachycardia- Primary Tachycardia, unspecified documented in this encounter Care Teams Civil Preparedness Coordinator Relationship Specialty Start Date End Date Priti Navarro MD [address] [place] [address] PCP - General 09/20/10 02/21/12 documented as of this encounter
--- OUTSIDE RECORDS SUMMARY | 2024-07-28 15:42 | XMS_ITS | Encounter Summary ---
Author Organization [facility] [place] [address] Care Team Providers Care Proof Plate Maker Name Role Phone Arnoldo Lopez DO Primary Care Provider [phone] Reason for Visit * Reason Onset Date Comments Post Procedure Call 09/26/2019 Encounter Details Date Type Department Care Team (Late st Contact Info) Description 09/26/2019 Telephone [place]stetric[place] [phone] Pina Wadsworth RN Post Procedure Call Social History Tobacco Use Types Packs/Day Years Used Date Smoking Tobacco: Former Cigarettes 0.5 12 1 - 08/14/2009 Smokeless Tobacco: Never Alcohol Use Standard Drinks/Week Comments Not Asked 15 (1 standard drink = 0.6 oz pu re alcohol) Sex and Gender Information Value Date Recorded Sex Assigned at Not on file Gender Identity Not on file Sexual Orientation Not on file documented as of this encounter Miscellaneous Notes * Telephone Encounter - Pina Wadsworth RN - 09/26/2019 9:55 AM EST POST-OP TELEPHONE UPDATE Date of Surgery: 09/23/19 VAGINECTOMY, PARTIAL REMOVAL OF VAGINAL WALL (WRVU 7.5) (N/A) (vaginectomy with total colpocleisis) COLPORRHAPHY, POST RECTOCELE WITH OR W\O PERINEORRHAPHY Overall well-being: I am deciding how I am doing Pain?: 05/07 Pain medication working(Y/N)?: Using Motrin and Tylenol with moderate relief. Used last Dilaudid last night Location of pain: Rectal pressure Bladder function: voiding without difficulty Bowel function: No BM, afraid to have BM that it will be painful. Taking stool softeners BID. Encourage pt to increase prunes and fluids. Can go ahead and Senna. If no BM by tomorrow to try M.O.M. Ambulating: Yes Tolerating solids / liquids: Drinking and eating small amounts of food Dressings: none Incisions: internal Vaginal bleeding: none Fever: none Post Op appointment booked? [facility] appt was booked. Instructions: We reviewed phone contacts. The patient will call triage at during daytime hours or during the evening or weekends and ask for the picker physician neonatology if she is having problems. PINA WADSWORTH RN documented in this encounter Plan of Treatment Not on file documented as of this encounter Visit Diagnoses Not on filedocumented in this encounter Care Teams Proof Plate Maker Relationship Specialty Start Date End Date Arnoldo Lopez DO [address] [place] [address] PCP - General Family Medicine 06/17/19 documented as of this encounter
--- OUTSIDE RECORDS SUMMARY | 2024-07-28 15:42 | XMS_ITS | Encounter Summary ---
Author Organization [facility] [place] [address] Care Team Providers Care Nurse Staff Industrial Name Role Phone Arnoldo Lopez Guille Primary Care Provider Reason for Visit * Reason Comments Post Op Encounter Details Date Type Department Care Team (Late st Contact Info) Description 11/12/2019 1:00 PM EST Office Visit Obstetrics [place] [id number] Harman Hearn MD [facility] [address] OBSTETRICS [place] [address] Post-operative state; Postop check Social History Tobacco Use Types Packs/Day Years [...] on file documented as of this encounter Last Filed Vital Signs Vital Sign Reading Time Taken Comments Blood Pressure 141/79 11/12/2019 1:15 PM EST Pulse 106 11/12/2019 1:15 PM EST Temperature 36.8 ??C (98.3 ??F) 11/12/2019 1:15 PM ES T Respiratory Rate - - Oxygen Saturation 99% 11/12/2019 1:15 PM EST Inhaled Oxygen Concentration - - Weight - - Height - - Body Mass Index - - documented in this encounter Progress Notes * Harman Hearn MD - 11/12/2019 1:00 PM EST FEMALE PELVIC MEDICINE AND RECONSTRUCTIVE SURGERY POST OPERATIVE VISIT Patient Active Problem List Diagnosis Code ??? 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 Rectocele N81.6 ??? Urinary incontinence, urge N39.41 ??? Prolapse of female pelvic organs N81.9 Date of visit: 11/12/2019 Patient name: Evita Aguiar Date of surgery: 09/23/19 Procedure: Vaginectomy with total colpocleisis, posterior colporrhaphy Pathology: n/a Subjective: Ms. Aguiar is s/p the above procedures. She has been tolerating a regular diet. She denies nausea and vomiting, and she has been afebrile since surgery. Since surgery, she reports: None Continued vaginal bleeding New pelvic related pain Abnormal vaginal discharge Burning with urination Blood in urine Enuresis x New prolapse symptoms since surgery Bladder Function Number of daytime voids: Every 30 in the AM, every 1-2 hours later in day Number of nocturia events: 1+ Urinary incontinence since surgery (y/n): yes If yes, [place] Incontinence Severity Index: How often do you experience urinary leakage? 0. Never 1. Less than once a month 2. A few times a month 3. A few times a week 4. Every day and/or night Value 3 How much urine do you lose each time? 0. None 1. Drops 2. Small Splashes 3. More Value 1 The Severity Index is the product of the two questions 0 - NONE 1-2 Slight 3-6 Moderate 8-9 Severe 12 Very severe SCORE: 3 If yes, leaks with: Event Presence Event Presence NONE Arnold Walking Cold Weather Running Anticipation of going to the lavatory x Cough/Sneeze x First morning void Lifting Running water Laughing Other Number of pads / day: no Pad type: Just for travel Voiding Dysfunction: Symptom Presence NONE x Straining to empty Incomplete emptying Weak stream Feeling the urge to void after voiding Dribbling Changes in position Difficulty initiating a stream Bowel Function Fecal incontinence since surgery? (stool/gas) no How many fecal incontinence episodes / week? n/a How often do you have bowel movements? daily Any new defecatory problems since surgery?: yes IF so which defecatory problem?: Symptom Presence Symptom Presence NONE Require laxatives regularly Difficulty emptying x Less than three bowel movements / week Need to strain x Urgency Hard stools Other Loose stools OBJECTIVE: BP 141/79 Pulse (!) 106 Temp 36.8 ??C (98.3 ??F) (Oral) SpO2 99% Results for orders placed or performed in visit on 11/12/19 POCT urine dipstick Result Value Ref Range POC Sp [place] 1.005 1.002 - 1.030 POC pH, UA 5 5.0 - 8.5 POC Leuk, UA Neg. Negative - Negative POC Nitrite, UA Neg. Negative - Negative POC Protein, UA Neg. Negative - Negative mg/dL POC Glucose, UA Norm. Normal - Normal mg/dL POC Ketone, UA Neg. Negative - Negative POC Urobil, UA Norm. 0.2 - 1.0 mg/dL POC Bili, UA Neg. Negative - Negative POC Blood, UA Neg. Negative - Negative sam/uL Bladder Scanner Result Value Ref Range Bladder Scan (mL) 0 mL General: normal appearing female, pleasant mood, normal speech Abdomen: Abdomen soft, non-tender, no masses. \Back: Non-tender, without costovertebral angle or paraspinal tenderness Pelvic: Cough stress test (empty supine): negative External Genitalia: Vulva, [place]'s and [place] glands normal, urethra without tenderness or mass Vagina:s/p colpocleisis, length ~ 2 cm. Some old sutures present Discharge?: no Cervix: s/p colpocleisis Bimanual (uterus/adnexa): S/p colpocleisis Impression: Ms. Aguiar is a 69 y.o. year old woman now 6 wks s/p colpocleisis Plan: Activity: increase gradually as tolerated. Pelvic floor exercises 10 reps 2-3 times daily to maintain pelvic floor strength Return in 12 months / PRN to reassess HARMAN HEARN MD Division of Female Pelvic Medicine/Reconstructive Surgery documented in this encounter Plan of Treatment Not on file documented as of this encounter Procedures Procedure Name Priority Date/Time Associated Diagnosis Comments BLADDER SCANNER Routine 11/12/2019 Post-operative state POCT URINE DIPSTICK Routine 11/12/2019 Post-operative state documented in this encounter Results * Bladder Scanner (11/12/2019) Bladder Scan (mL) 0 mL Harman Hearn MD URO PROC W/O RFL ORD ERABLES * POCT urine dipstick (11/12/2019) POC Sp [place] 1.005 1.002 - 1.030 POC pH, UA 5 5.0 - 8.5 POC Leuk, UA Neg. Negative - Negative POC Nitrite, UA Neg. Negative - Negative POC Protein, UA Neg. Negative - Negative mg/dL POC Glucose, UA Norm. Normal - Normal mg/dL POC Ketone, UA Neg. Negative - Negative POC Urobil, UA Norm. 0.2 - 1.0 mg/dL POC Bili, UA Neg. Negative - Negative POC Blood, UA Neg. Negative - Negative sam/uL Harman Hearn MD POINT OF CARE TEST O RDERABLES documented in this encounter Visit Diagnoses Diagnosis Post-operative state Other postprocedural status Postop check Follow-up examination, following unspecified surgery documented in this encounter Care Teams Nurse Staff Industrial Relationship Specialty Start Date End Date Arnoldo Lopez DO [address] [place] [address] PCP - General Family Medicine 06/17/19 documented as of this encounter
--- OUTSIDE RECORDS SUMMARY | 2024-07-28 15:42 | XMS_ITS | Continuity of Care Document ---
Author Organization [facility] Address [address] [place] [address] Care Team Providers Care Patient Financial Advocate Name Role Phone [facility] Encounter [facility] Date(s): 10/17/23 - 10/17/23 [facility] [address] [place] [address] Encounter Diagnosis Type II diabetes mellitus uncontrolled(Discharge Diagnosis) - 10/17/23 Discharge Disposition: Home or Self Care Attending Physician: Hao Pittman Admitting Physician: Hao Pittman Referring Physician: Hao Pittman Allergies, Adverse Reactions, Alerts Substance Reaction Severity Status PAPAYA Unknown Active TREE AND SHRUB POLLEN Unknown Active ALOE VERA Unknown Active PINEAPPLE Unknown Active WOOL Unknown Active iodinated radiocontrast dyes Rapid heart beat Unknown Active Assessment and Plan Future Appointments Future Scheduled Tests Laboratory* Hemoglobin A1c 10/03/23 Immunizations Given and Recorded Vaccine Date Status Refusal Reason SARS-CoV-2 (COVID-19) mRNA-1273 vaccine 01/21/21 R ecorded SARS-CoV-2 (COVID-19) mRNA-1273 vaccine 12/23/20 R ecorded Medications acetaminophen 0 Refill(s) Start Date: 10/03/22 Status: Ordered amLODIPine 5 mg oral tablet 1 tab, Oral, Daily, # 90 tab, 3 Refill(s), Pharmacy: [facility] #[id number] Start Date: 08/08/23 Status: Ordered aspirin 81 mg oral delayed release tablet 81 mg = 1 tab, Oral, Daily, # 90 tab, 0 Refill(s) Start Date: 10/03/22 Status: Ordered dilTIAZem 180 mg/24 hours oral capsule, extended release 360 mg = 2 cap, Oral, Daily, # 180 cap, 1 Refill(s), Pharmacy: [facility] #[id number] Start Date: 07/31/23 Status: Ordered docusate sodium 100 mg oral capsule 100 mg = 1 cap, Oral, BID, PRN as needed for constipation, # 20 cap, 0 Refill(s) Start Date: 10/03/22 Status: Ordered irbesartan 150 mg oral tablet See Instructions, TAKE 1 TABLET BY MOUTH EVERY DAY, # 90 tab, 3 Refill(s), Pharmacy: [facility] #[id number] Start Date: 11/06/22 Status: Ordered simethicone 80 mg oral tablet, chewable 80 mg = 1 tab, Chewed, QID, PRN as needed for gas, # 12 tab, 0 Refill(s) Start Date: 10/03/22 Status: Ordered Vitamin B12 0 Refill(s) Start Date: 04/03/23 Status: Ordered Vitamin D3 0 Refill(s) Start Date: 04/03/23 Status: Ordered Problem List Condition Confirmation Course Effective Dates Status Health St atus Informant Dysuria Confirmed Active Hypertensive disorder Confirmed Active Low back pain Confirmed Active Type II diabetes mellitus uncontrolled Confirmed Active Vaginal wall prolapse Confirmed 09/23/19 Active Procedures Procedure Date Related Diagnosis Body Site Status Vaginectomy 09/22/19 Completed Colpocleisis 09/21/19 Completed Hysterectomy 10/28/89 Completed Appendectomy 10/28/88 Completed Results Laboratory List Name Date Hemoglobin A1c 10/17/23 Most recent to oldest [Reference Range]: 1 Hemoglobin A1c [4.0-6.0 %] 7.8 % *HI* (10/17/23 10:51 AM) Social History Social History Type Response Tobacco Former tobacco user Tobacco Use:. 1 Sex Female 1Quit 2017 Patient Care team information Care Team Personnel Name: Jessica ARCINIEGAArnoldo DO Position: PowerChart View Only Member Role: Primary Care Physician Address: Address: [facility] [id number] [place] [address]
--- OUTSIDE RECORDS SUMMARY | 2024-07-28 15:42 | XMS_ITS | Encounter Summary ---
Author Organization [facility] Address [facility] [place] [address] Care Team Providers Care Soil Fertility Extension Specialist Name Role Phone Arnoldo Lopez DO Primary Care Provider Reason for Visit * Reason Comments Vaginal Prolapse * Consultation (Routine) - Closed Specialty Diagnoses / Procedures Referred By Nataliya t Referred To Contact Obstetrics and Gynecology Diagnoses Rectocele PESSARY FOR SUPPPORT. SHE IS INTERESTED IN SURGICAL OPTIONS. PATIENT IS NOT SEXUALLY ACTIVE AND IS CONSIDERING COLPOCLEISIS. Grace Gutierrez MD [address] [place] [address] [facility] [address] [place] [address] Referral ID Status Reason Start Date Expiration Date V isits Requested Visits Authorized [id number] Closed Consult, Test & [facility] 06/23/2019 06/22/2020 1 1 Encounter Details Date Type Department Care Team (Late st Contact Info) Description 08/14/2019 1:00 PM EDT Office Visit Obstetrics [place] [address] Harman Hearn MD [facility] DR OBSTETRICS [place] [address] Vaginal wall prolapse; Enterocele; Rectocele; Mixed stress and urge urinary incontinence Social History Tobacco Use Types Packs/Day Years Used Date Smoking Tobacco: Former Cigarettes 0.5 12 1 - 08/14/2009 Smokeless Tobacco: Never Sex and Gender Information Value Date Recorded Sex Assigned at Not on file Gender Identity Not on file Sexual Orientation Not on file documented as of this encounter Last Filed Vital Signs Vital Sign Reading Time Taken Comments Blood Pressure 133/77 08/14/2019 12:53 PM EDT Pulse 110 08/14/2019 12:53 PM EDT Temperature 36.7 ??C (98 ??F) 08/14/2019 12:53 PM EDT Respiratory Rate - - Oxygen Saturation 95% 08/14/2019 12:53 PM EDT Inhaled Oxygen Concentration - - Weight 58.5 kg (129 lb) 08/14/2019 12:53 PM EDT Height 143.5 cm (4' 8.5) 08/14/2019 12:53 PM ED T Body Mass Index 28.41 08/14/2019 12:53 PM EDT documented in this encounter Progress Notes * Harman Hearn MD - 08/14/2019 1:00 PM EDT Female Pelvic Medicine and Reconstructive Surgery @ [facility] Patient Name: Evita Aguiar Patient Primary Care Provider: Arnoldo Lopez DO There is no problem list on file for this patient. Chief Complaint: rectocele History of Present Illness: Ms. Aguiar is a 69 y.o. old para 1 woman, seen at the kind request of Dr. Grace Gutierrez. She presents for evaluation and assessment of vaginal protrusion of 6-12 months' duration. She notes that the bladder and rectal areas are both pushing down. The discomfort is worse with standing. She tried pessaries with Dr. Gutierrez in the office and there were some that were too uncomfortable and others popped right out. Goals for this visit 1. Treat vaginal bulging and discomfort. 2. Decrease urine leakage. Urinary tract history Patient denies history of recurrent urinary tract infection. Patient denies history of pyelonephritis. Patient denies history of urinary tract abnormality. Patient does history of nephrolithiasis X 1. Patient denies history of hematuria. Bladder irritants: Fluid intake: anthony Caffeine intake: 2 cups of coffee / am Cigarette smoking (packs, time, if quit when): No, quit ten years ago Alcohol: 3 / week Bladder Function Urinary incontinence: yes ICIQ-UI Short Form How often do you leak urine? Never 0 About once a week or less often 1 x 2-3 times a week 2 About once a day 3 Several times a day 4 All the time 5 How much urine do you usually leak? None 0 x A small amount 1 A moderate amount 2 A large amount 3 Overall, how much does leaking interfere with your everyday life? 5 (0 not at all, 10 a great deal) ICIQ Sum the scores: 8 When does urine leak? (Check all that apply) Never - Urine does not leak x Leaks before you can get to the toilet x Leaks when you cough or sneeze Leaks when you are asleep Leaks when you are physically active/exercising x Leaks when you have finished urinating or are dressed Leaks for no obvious reason Leaks all the time Pad use (per day): When traveling, going out Pad type: Light pads, started heavier Daytime voids: Every 1-2 hours Nocturia: 2 Previous urinary incontinence treatment (Medical/Behavioral/Surgical): no Storage symptoms x Urinary frequency x Nocturia x Stress urinary incontinence - leakage with exertion, cough/sneeze x Urge urinary incontinence - leakage preceded immediately by urge to void Noctural enuresis - NOT IN ASSOCIATION WITH URGE Continuous urinary leakage Other: (e,g. giggle, intercourse-related) Bladder sensation Normal - aware of filling and increased sensation up to desire to void x Increased - feels an early and persistent need to void Reduced - aware of filling but NOT definite desire to void Absent - NO sensation of filling or need to void Non-specific - No specific bladder symptoms during filling or void Voiding symptoms None Slow stream Spraying Intermittent stream - stop/start on > 1 occasion during void Straining - muscular effort to initiate, maintain OR improve stream x Terminal dribble - prolonged final part of void Feeling of incomplete emptying Pelvic Organ Prolapse (POP) Any personally see or feel a vaginal bulge? yes What precipitates prolapse or symptoms of prolapse? When straining for BM Previous treatment for POP (physical therapy, pessary, surgery)?: Tried pessaries Bowel Function Fecal incontinence (yes/no): occ with passage of gas Number of fecal incontinent episodes (day/week): n/a Number of bowel movements (day/week): Every day Defecatory Dysfunction: Symptom Presence Symptom Presence NONE Incomplete Emptying Straining x Infrequent stools (<3 week) Splinting x Abdominal discomfort Loose stools Defecatory urgency Hard stools Other Sexual Function Active?: Not for 20 years Pain with intercourse?: n/a If yes, insertional/Deep? n/a Desire to retain sexual function? no Past Medical History: Diagnosis Date ??? Fracture, humerus 2018 ??? Hypertension ??? Prediabetes ??? Psoriatic arthritis ??? Small bowel obstruction after hysterectomy, resolved with decompression NGT Past Surgical History: Procedure Laterality Date ??? APPENDECTOMY 1982 ??? HYSTERECTOMY, TOTAL ABDOMINAL 1988 endometriosis, with USO ??? SALPINGO-OOPHORECTOMY endometriosis ??? TONSILLECTOMY OB History Para Term AB Living 1 1 1 0 0 1 SAB TAB Ectopic Multiple Live Births 0 0 0 0 0 # Outcome Date GA Lbr Donte/2nd Weight Sex Delivery Anes PTL Lv 1 Term 3.345 kg (7 lb 6 oz) Vag-Forceps Outpatient Medications Marked as Taking for the 08/14/19 encounter (Office Visit) with Harman Hearn MD Medication Sig Dispense Refill ??? dilTIAZem (CARDIZEM CD) 180 mg Capsule, Sust. Release 24 hr Take 360 mg by mouth daily. 0 ??? irbesartan (AVAPRO) 75 mg Tablet Take 150 mg by mouth daily. 0 ??? lactobacillus combination no.8 (ADULT PROBIOTIC ORAL) Take by mouth daily. ??? calcium carbonate (CALCIUM 500 ORAL) Take 1,000 mg by mouth daily. ??? folic acid/multivit-min/lutein (CENTRUM SILVER ORAL) Take by mouth daily. ??? cholecalciferol, Vitamin D3, 2,000 unit Capsule Take by mouth daily. ??? docusate sodium (COLACE) 100 mg Capsule Take 200 mg by mouth daily. ??? Ibuprofen 200 mg Capsule Take by mouth as needed. ??? acetaminophen (TYLENOL) 500 mg Tablet Take 1,000 mg by mouth every 6 hours as needed for Pain. ??? famotidine (PEPCID) 20 mg Tablet Take 20 mg by mouth 2 times daily as needed. ??? simethicone (MYLICON) 80 mg Tablet, Chewable Take 80 mg by mouth every 6 hours as needed for Flatulence. ??? CIS Free Text Med - Baby ASA Allergies Allergen Reactions ??? Aloe Vera ??? Metformin Diarrhea ??? Papaya Hives ??? Pineapple Hives Social History Socioeconomic History ??? Marital status: Single Spouse name: Not on file ??? Number of children: Not on file ??? Years of education: Not on file ??? Highest education level: Not on file Occupational History ??? Not on file Social Needs ??? Financial resource strain: Not on file ??? Food insecurity: Worry: Not on file Inability: Not on file ??? Transportation needs: Medical: Not on file Non-medical: Not on file Tobacco Use ??? Smoking status: Former Smoker Packs/day: 0.50 Years: 12.00 Pack years: 6.00 Types: Cigarettes Last attempt to quit: 08/14/2009 Years since quittin.0 ??? Smokeless tobacco: Never Used Substance and Sexual Activity ??? Alcohol use: Not on file ??? Drug use: Not on file ??? Sexual activity: Not on file Lifestyle ??? Physical activity: Days per week: Not on file Minutes per session: Not on file ??? Stress: Not on file Relationships ??? Social connections: Talks on phone: Not on file Gets together: Not on file Attends protestant service: Not on file Active member of club or organization: Not on file Attends meetings of clubs or organizations: Not on file Relationship status: Not on file ??? Intimate partner violence: Fear of current or ex partner: Not on file Emotionally abused: Not on file Physically abused: Not on file Forced sexual activity: Not on file Other Topics Concern ??? Not on file Social History Narrative Lives alone. 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 Family History Problem Relation Age of Onset ??? Heart Failure Mother ??? Hypertension Mother ??? Diabetes Mother ??? Colorectal Cancer Father ??? Lung Cancer Father ??? Breast Cancer Sister ??? Diabetes Sister Family history: denies history of gynecologic cancer ROS: Review of all other systems negative except for those mentioned above or indicated below: System Symptom Presence Constitutional Weight Loss Weight gain Eyes History of glaucoma ENT/Mouth Mouth sores/Dry mouth A lot of dental work Cardiovascular Chest pain Leg swelling Respiratory Wheezing SOB GI Nausea/vomiting Constipation x Abdominal pain Yes, lower abdomen/ pelvis Skin/Breast Breast masses Rash/ulcer Musculoskeletal Muscle weakness Right arm, had fracture Trouble Walking Neurological Dizziness/falling Numbness Psychiatric Depression Some Anxiety Endocrine Abnormal thirst Menopause: Y/N / age? yes / 39 Hot flashes resolved Hematologic Frequent bruising History of blood transfusions Yes, with hysterectromy Blood clots (DVT / PE) no Prior problems w/ anesthesia no Outside medical records reviewed: I reviewed notes from Dr. Gutierrez Data reviewed (images/urodynamic studies): To further delineate patient's urinary symptoms, a urinedip test and postvoid residual via bladder scanner were obtained. Results for orders placed or performed in visit on 08/14/19 POCT urine dipstick Result Value Ref Range POC Sp Institute WNL 1.002 - 1.030 POC pH, UA WNL 5.0 - 8.5 POC Leuk, UA Neg. [...] Result Value Ref Range Bladder Scan (mL) 85 mL OBJECTIVE: BP 133/77 Pulse (!) 110 Temp 36.7 ??C (98 ??F) (Oral) Ht 143.5 cm (4' 8.5) Wt 58.5 kg (129lb) SpO2 95% BMI 28.41 kg/m?? General: normal appearing female, pleasant mood, normal speech Skin: skin of abdomen/pelvis normal Respiratory: clear to auscultation bilaterally Neuro: no paraspinous tenderness; saddle sensory function (S2-4) intact in the pelvic area to touch Cardiac: Tachycardia, ? Irregular rhythm, no appreciated murmurs Gastrointestinal: no palpable masses/organomegaly, soft/nontender, no appreciable hernia Musculoskeletal: levator ani tone (0-5): 1, levator ani contraction (0-5): 1, no levator tenderness Pelvic: Cough stress test (empty supine): negative External Genitalia: Vulva, W[place]'s and Bartholin glands normal, urethra without tenderness or mass Vagina: With Valsalva, the anterior vaginal wall comes 3 cm above the hymen, the posterior vagina wall comes 3 cm beyond the hymen, and the cervix/apex comes 6 cm above the hymen Atrophic epithelium (yes/no)?: yes Discharge?: no Cervix: absent Bimanual (uterus/adnexa): Uterus is surgically absent; no adnexal masses or tenderness. Rectovaginal: Enterocele: yes Rectocele: yes Anal sphincter: Resting tone: 5/5 Anal wink: normal External anal sphincter: intact POP Q Measurements: Aa -3 Ba -3 C -6 GH 3,4 PB 4,4 TVL 8 Ap +3 Bp +3 D -- Impression: Ms. Aguiar is a .69 y.o. woman with: ?? Stage 3 vaginal prolapse, primarily involving the posterior compartment, including an enteroceleand rectocele. Recommendations: I reviewed the anatomy and physiology of pelvic support disorders. We discussed options for management including: Continued observation, pelvic floor exercises (supervised or unsupervised), pessary and/or surgery. Based on the patients expressed goals for management I have recommended the following: After reviewing options of marshall (uterosacral or sacroapinous) ligament repair versus laparoscopicmesh sacral colpopexy, versus vaginectomy with colpocleisis, enterocele repair, she prefers the latter approach. We reviewed the pros / cons of each approach, including less durability with marshall ligament repair but added risks of bowel injury/ obstruction or mesh erosion with mesh repair. We discussed that a colpocleisis closes the rivera of the vagina to treat prolapse. We reviewed thatthis procedure has a high success rate with lower morbidity than some other options to treat prolapse. We reviewed that we only consider this surgery if the patient is no longer interested in vaginal intercourse. She agrees to this approach. We will plan a full bladder cough stress test with support of her prolapse at her preop visit to assess risks for occult stress urinary incontinence. We will check an ECG at preop given her tachycardia. (Patient states history of tachycardia but normal ECGs and evaluation in past). CONSENT: I discussed the planned procedure with the patient, including risks and benefits. We reviewed the consent form, which the patient has signed. As part of our discussion, we reviewed risks including but not limited to infection, bleeding, injury to bladder, urethra, ureters, bowel, possible fistula formation. We discussed that we perform cystoscopy to assure no urinary tract injury prior to ending the procedure. We discussed rare risks of nerve injury due to positioning, retraction, or sutures. We also reviewed potential changes in bladder, bowel and sexual function after prolapse and anti-incontinence operations. We reviewed risks of mesh erosion that can occur even many years out from surgery and risks of persistent pain. We discussed the July 2008 and April 2011 FDA warning regarding mesh placed transvaginally for prolapse repairs and the different applications for mesh in the pelvic area carry different risks. We reviewed risks of mesh erosion with a sling are ~3%, if a sling is placed. (x) ACOG or other informational pamphlets given to patient HARMAN HEARN MD Division of Female Pelvic Medicine/Reconstructive Surgery CC: DO Grace Cruz MD documented in this encounter Plan of Treatment Not on file documented as of this encounter Procedures Procedure Name Priority Date/Time Associated Diagnosis Comments COLPORRHAPHY,POST RECTOCELE W\OR W\O PERINEORRHAPHY Routine 08/14/2019 3:29 PM EDT Rectocele VAGINECTOMY,PARTIAL REMOVAL OF VAGINAL WALL Routine 08/14/2019 3:29 PM EDT Vaginal wall prolapse Enterocele BLADDER SCANNER Routine 08/14/2019 Vaginal wall prolapse POCT URINE DIPSTICK Routine 08/14/2019 Vaginal wall prolapse documented in this encounter Results * Bladder Scanner (08/14/2019) Pathologist [facility] Bladder Scan (mL) 85 mL Harman Hearn MD URO PROC W/O RFL ORD ERABLES * POCT urine dipstick (08/14/2019) POC [facility] WNL 1.002 - 1.030 POC pH, UA WNL 5.0 - 8.5 POC Leuk, UA Neg. [...] documented in this encounter Visit Diagnoses Diagnosis Vaginal wall prolapse Unspecified prolapse of vaginal rivera Enterocele Hernia of unspecified site of abdominal cavity without mention of obstruction or gangrene Rectocele Mixed stress and urge urinary incontinence Mixed incontinence urge and stress (male)(female) documented in this encounter Care Teams Soil Fertility Extension Specialist Relationship Specialty Start Date End Date Arnoldo Lopez DO [address] [place] [id number] PCP - General Family Medicine 06/17/19 documented as of this encounter
--- OUTSIDE RECORDS SUMMARY | 2024-07-28 15:42 | XMS_ITS | Clinical Summary ---
Author Organization [facility] [place] [address] Care Team Providers Care Dry Placer Machine Operator Name Role Phone Arnoldo Lopez DO Primary Care Provider Allergies Active Allergy Reactions Criticality Noted Date Comments Aloe Vera 08/14/2019 Iodinated Contrast Media 09/18/2019 Metformin Diarrhea 08/14/2019 Morphine Other (See Comments) 09/18/2019 I felt awful Oxycodone 09/18/2019 [place] poorly. Did fine with hydrocodone Papaya Hives 08/14/2019 Pineapple Hives 08/14/2019 Soy 09/18/2019 Medications Medication Sig Dispensed Refills Start Date End Date Status CIS Free Text Med - Baby ASA 03/22/2004 Active dilTIAZem (CARDIZEM CD) 180 mg Capsule, Sust. Release 24 hr Take 360 mg by mouth daily. 0 08/09/2019 Active irbesartan (AVAPRO) 75 mg Tablet Take 150 mg by mouth daily. 0 08/11/2019 Active lactobacillus combination no.8 (ADULT PROBIOTIC ORAL) Take by mouth daily. Active calcium carbonate (CALCIUM 500 ORAL) Take 1,000 mg by mouth daily. Active folic acid/multivit-min/lut ein (CENTRUM SILVER ORAL) Take by mouth daily. Active cholecalciferol, Vitamin D3, 2,000 unit Capsule Take by mouth daily. Active famotidine (PEPCID) 20 mg Tablet Take 20 mg by mouth daily as needed. Active simethicone (MYLICON) 80 mg Tablet, Chewable Take 80 mg by mouth every 6 hours as needed for Flatulence. Active acetaminophen (TYLENOL) 325 mg Tablet Take 2 tablets by mouth every 6 hours as needed for Pain. 30 tablet 1 09/24/2019 Active ibuprofen (ADVIL;MOTRIN) 600 mg Tablet Take 1 tablet by mouth every 6 hours. 30 tablet 12 09/24/2019 Active docusate sodium (COLACE) 100 mg Capsule Take 100 mg by mouth 2 times daily as needed for Constipation. Active Active Problems Problem Noted Date Diagnosed Date Prolapse of female pelvic organs 09/23/2019 Enterocele 08/14/2019 Rectocele 08/14/2019 Urinary incontinence, urge 08/14/2019 Family History Medical History Relation Comments Colorectal Cancer Father Lung Cancer Father Diabetes Mother Heart Failure Mother Hypertension Mother Breast Cancer Sister 1 Diabetes Sister 2 Relation Status Comments Father (Age 82) Mother (Age 94) Sister 1 (Age 49) Sister 2 Alive Sister 3 Alive Social History Tobacco Use Types Packs/Day Years Used Date Smoking Tobacco: Former Cigarettes 0.5 12 1 - 08/14/2009 Smokeless Tobacco: Never Alcohol Use Standard Drinks/Week Comments Not Asked 15 (1 standard drink = 0.6 oz pu re alcohol) Sex and Gender Information Value Date Recorded Sex Assigned at Not on file Gender Identity Not on file Sexual Orientation Not on file Last Filed Vital Signs Vital Sign Reading Time Taken Comments Blood Pressure 141/79 11/12/2019 1:15 PM EST Pulse 106 11/12/2019 1:15 PM EST Temperature 36.8 ??C (98.3 ??F) 11/12/2019 1:15 PM ES T Respiratory Rate 14 09/24/2019 3:10 AM EST Oxygen Saturation 99% 11/12/2019 1:15 PM EST Inhaled Oxygen Concentration - - Weight 57.3 kg (126 lb 4.8 oz) 09/23/2019 2:21 P M EST Height 143.5 cm (4' 8.5) 09/23/2019 2:21 PM EST Body Mass Index 27.82 09/23/2019 2:21 PM EST Plan of Treatment Health Maintenance Due Date Last Done Comments Hepatitis C Screening 1966 Tetanus/Diphtheria/Pertussis Vaccines (1 - Tdap) 06/26 Zoster vaccine (1 of 2) 1998 Advance Directive 2003 Bone Density Scan 2013 Pneumoccocal Vaccine: 65+ (1 of 1 - PCV) 2013 Covid-19 Vaccine (1 - 2022-24 season) 2024 Influenza (Flu) vaccine (1 o f 1 - Influenza standard series) 06/29/2024 Advance Directives * Full Code (Latest Code Status on File) Date Activated Date Inactivated Comments 09/23/2019 7:51 PM 09/24/2019 1:52 PM Question Answer Comments Does patient have capacity to make decision: Yes * Full Code Date Activated Date Inactivated Comments 09/23/2019 4:29 PM 09/23/2019 7:51 PM Question Answer Comments Does patient have capacity to make decision: Yes Care Teams Dry Placer Machine Operator Relationship Specialty Start Date End Date Arnoldo Lopez DO [address] [place] [address] PCP - General Family Medicine 06/17/19
--- OUTSIDE RECORDS SUMMARY | 2024-07-28 15:42 | XMS_ITS | Encounter Summary ---
Author Organization Formerly [facility] [place] [address] Care Team Providers Care Area Captain Name Role Phone Arnoldo Lopez DO Primary Care Provider [phone] Reason for Visit * Auth/Cert Specialty Diagnoses / Procedures Referred By Nataliya t Referred To Contact Diagnoses vaginal prolapse, enterocele and rectocele Procedures PRO REMOVE VAGINA WALL, PARTIAL PRO REPAIR ENTEROCELE, VAG APPRCH PRO POST COLPORRHAPHY, RECTUM/VAGINA PRO SLING OPER STRES INCONTINENCE VAGINECTOMY, PARTIAL REMOVAL OF VAGINAL WALL (WRVU 7.5) ENTEROCELE REPAIR \ VAGINAL APPROACH (WRVU 7.57) COLPORRHAPHY, POST RECTOCELE WITH OR W\O PERINEORRHAPHY (WRVU 11.5) URETHRAL SUSPENSION, SLING\FASCIA OR SYNTHETIC (WRVU 12.13) Referral ID Status Reason Start Date Expiration Date Visits Re quested Visits Authorized [id number] 1 1 Encounter Details Date Type Department Care Team (Latest Contact Info) Description 09/23/2019 11:03 AM EST - 09/24/2019 11:52 AM EST Hospital Encounter [place] [address] Greg Vu MD [facility] OBSTETRICS [place] [address] Discharge Disposition: Home Social History Tobacco Use Types Packs/Day Years [...] Sign Reading Time Taken Comments Blood Pressure 129/81 09/24/2019 3:10 AM EST Pulse 99 09/24/2019 3:10 AM EST Temperature 37 ??C (98.6 ??F) 09/24/2019 3:10 AM EST Respiratory Rate 14 09/24/2019 3:10 AM EST Oxygen Saturation 97% 09/24/2019 3:10 AM EST Inhaled Oxygen Concentration - - Weight 57.3 kg (126 lb 4.8 oz) 09/23/2019 2:21 P M EST Height 143.5 cm (4' 8.5) 09/23/2019 2:21 PM EST Body Mass Index 27.82 09/23/2019 2:21 PM EST documented in this encounter Discharge Summaries * Ranjana Lott MD - 09/24/2019 8:18 AM EST Images from the original note were not included. Discharge Summary Patient Name: Evita Aguiar Patient Age: 69 y.o. Language: American Race: White Ethnicity: Not nor Admit date: 09/23/2019 Discharge date and time: 09/24/19 Attending Physician: Greg Vu MD Discharge Physician: Greg Vu MD Follow-up Recommendations for Providers: -- post-op follow up in 4-6 weeks Inpatient Provider Contact Information: [facility] Department of Urogynecology Contact: weekdays, or [phone] weekends or nights Discharge Diagnoses (Hospital Problems) and Secondary Diagnoses (Chronic Problems): Active Hospital Problems Diagnosis ??? Enterocele ??? Prolapse of female pelvic organs ??? Rectocele Resolved Hospital Problems No resolved problems to display. Active Non-Hospital Problems Diagnosis ??? Urinary incontinence, urge Operations/Major Procedures: 09/23/2019 -- vaginectomy with total colpocleisis and posterior repair History of Presentation: 69 y.o. woman presenting for scheduled colpocleisis and posterior repair secondary to symptomatic stage 3 pelvic organ prolapse after hysterectomy, desires surgical repair. She had a negative cough stress test with support of the prolapse at her preop visit. Operative consent reviewed. No interval changes in history or physical exam prior to procedure. Hospital Course: Ms. Aguiar was admitted on 09/23/19 and underwent the above procedures without complications. She tolerated the procedure well with a total estimated blood loss of 20mL. She was taken to the PACU awake and in stable condition. POD #0 she was transferred to the floor. Overnight she had adequate urinary output and tolerated PO fluids. She had moderate pelvic and rectal pain improved on PO tylenol, ibuprofen, and dilaudid. POD #1 she was able to tolerate a regular diet and ambulated with minimal assistance. She experienced some dizziness after ambulation that resolved prior to discharge. Vitals stable and vaginal bleeding was minimal. Her bladder was back-filledvia Carpenter and then the Carpenter was removed. She was able to void adequately and without difficulty. She was afebrile throughout her hospitalization. She was discharged to home POD #1 in stable condition and good spirits with plan to follow up in clinic for post-operative check. Vital signs at Discharge: BP: 129/81, Heart Rate: 99, Temp: 37 ??C (98.6 ??F), Resp: 14, BMI (Calculated): 27.81 Height: 143.5 cm (4' 8.5) (09/23/19 1421) Weight: 57.3 kg (126 lb 4.8 oz) (09/23/19 1421) Functional and Cognitive status: Intact and at baseline Important Studies and Lab Data: Labs: none Studies: none Pending Studies and Lab Data: none Discharge Conditions/Prognosis: good Discharge to: Home Updated Allergies/ADRs: Allergies Allergen Reactions ??? Aloe Vera ??? Iodinated Contrast Media ??? Metformin Diarrhea ??? Morphine Other (See Comments) I felt awful ??? Oxycodone Blanket poorly. Did fine with hydrocodone ??? Papaya Hives ??? Pineapple Hives ??? Soy Immunizations Given this Hospitalization: There is no immunization history on file for this patient. Discharge Medications: Your Medications Some of the medications listed here do not show instructions, such as how often to take the medication. Ask your doctor or nurse how to use these medications. Specifically ask about this and similar medications: CIS Free Text Med - Baby ASA New Medications Dose Details HYDROmorphone 2 mg Tab Commonly known as: DILAUDID Take 1 tablet by mouth every 4 hours as needed for Pain (Severe pain (7-10)). 2 mg Quantity: 5 tablet Refills: 0 ibuprofen 600 mg Tab Commonly known as: ADVIL;MOTRIN Take 1 tablet by mouth every 6 hours. Replaces: Ibuprofen 200 mg Cap 600 mg Quantity: 30 tablet Refills: 12 Continued medications with new dosing Dose Details acetaminophen 325 mg Tab Commonly known as: TYLENOL Take 2 tablets by mouth every 6 hours as needed for Pain. What changed: ?? medication strength ?? how much to take 650 mg Quantity: 30 tablet Refills: 1 docusate sodium 100 mg Cap Commonly known as: COLACE Take 2 capsules by mouth 2 times daily for 10 days. What changed: when to take this 200 mg Quantity: 20 capsule Refills: 0 Continued medications, unchanged Dose Details ADULT PROBIOTIC ORAL Take by mouth daily. Refills: 0 CALCIUM 500 ORAL Take 1,000 mg by mouth daily. 1,000 mg Refills: 0 CENTRUM SILVER ORAL Take by mouth daily. Refills: 0 cholecalciferol (Vitamin D3) 50 mcg (2,000 unit) Cap Take by mouth daily. Refills: 0 CIS FREE TEXT MED Refills: 0 dilTIAZem CD 180 mg Cp24 Commonly known as: CARDIZEM CD Take 360 mg by mouth daily. 360 mg Refills: 0 famotidine 20 mg Tab Commonly known as: PEPCID Take 20 mg by mouth daily as needed. 20 mg Refills: 0 irbesartan 75 mg Tab Commonly known as: AVAPRO Take 150 mg by mouth daily. 150 mg Refills: 0 simethicone 80 mg Chew Commonly known as: MYLICON Take 80 mg by mouth every 6 hours as needed for Flatulence. 80 mg Refills: 0 STOPPED Medications Ibuprofen 200 mg Cap Replaced by: ibuprofen 600 mg Tab Smoking Status at Discharge: Social History Tobacco Use Smoking Status Former Smoker ??? Packs/day: 0.50 ??? Years: 12.00 ??? Pack years: 6.00 ??? Types: Cigarettes ??? Last attempt to quit: 08/14/2009 ??? Years since quittin.1 Smokeless Tobacco Never Used Instructions Given to Patient at Discharge: Patient Instructions Follow up appointments and recommendations: If not made at the time of discharge, please call [phone] (Urogynecology) for an appointment in 6 weeks. Future Appointments Date Time Provider Department Center 10/28/2019 10:00 AM Greg Vu MD [facility] [place] 5L [facility] [place] Patient Discharge Instructions: Special Physician Instructions: If you are still needing a catheter to drain your bladder, please follow the instructions given to you separately for when to use the catheter and how to care for it. In addition, please call to check in with the urogynecology office nurse at [phone] to review how your bladder is working and when the catheter use can be discontinued. For problems or concerns related to this hospitalization call: [phone] weekdays, or [phone] weekends or nights. Call your doctor if you develop: --A fever over 101 degrees F --Severe pain --Nausea / vomiting, diarrhea, intolerance of food or drink --Heavy vaginal bleeding --Urinary frequency, urgency, or feeling of incomplete emptying of the bladder --If your wound is red, hot, swollen, tender or draining yellow/green fluid Activity level: You should be able to resume your usual activities of daily living (eating, drinking, washing, walking.). You can walk or climb stairs as long as you are not straining. You should avoid more vigorous exercise for at least 6 weeks. No lifting, pushing or pulling greater than 5-10 pounds for 6 weeks. No sexual intercourse and place nothing in the vagina for 6 weeks. Diet: Regular as tolerated, drink plenty of fluids. Use a stool softener (Colace) twice daily and Metamucil or Citrucel once or twice daily to keep your bowel movement soft and regular, so you do nothave to strain. If you miss two days without a bowel movement, take 30cc of Corbin???s Milk of Magnesia. You may take up to 30cc of Corbin???s Milk of Magnesia 4 times per day over a short amount of time (1 week). Driving: Do not drive until you are off of all narcotic medications and you are not feeling pain; usually about 1-2 weeks. Shower/Bath: Showering is fine. Do not soak in a tub for two weeks following surgery, this may cause your stitches to dissolve too early. Wound Care: Most women will experience some vaginal bleeding and discharge after surgery. You will want to havesome menstrual pads at home. You have dissolvable sutures in your vagina that do not need to be removed. Pain medications include Ibuprofen, Tylenol and Dilaudid. ?? Please use Ibuprofen 600 mg every 6 hours with food around the clock for the next several days and then after that use it only as needed. Drink plenty of fluids while you are home with this medication ?? You may alternate ibuprofen with Tylenol 650 mg every 6 hours. Maximum daily dose of Tylenol is 3000 mg. ?? Please use the Dilaudid 2mg every 4-6 hours as needed for pain that breaks through the Ibuprofen General Instructions None Future Appointments and Orders Future Appointments and Orders Future Appointments Provider Department Dept Phone 10/28/2019 10:00 AM Greg Vu MD Obstetrics and Gynecology at [facility] [place] Arrive at: [facility] 5L [phone] Discharge References/Attachments None Provider Contact Information: Arnoldo Lopez DO [phone] documented in this encounter Discharge Instructions * Patient Instructions* Ranjana Lott MD - 09/23/2019 5:25 PM EST Images from the original note were not included. Follow up appointments and recommendations: If not made at the time of discharge, please call [phone] (Urogynecology) for an appointment in 6 weeks. Future Appointments Date Time Provider Department Center 10/28/2019 10:00 AM Greg Vu MD [facility] [place] OBG 5L [facility] [place] Patient Discharge Instructions: Special Physician Instructions: If you are still needing a catheter to drain your bladder, please follow the instructions given to you separately for when to use the catheter and how to care for it. In addition, please call to check in with the urogynecology office nurse at [phone] to review how your bladder is working and when the catheter use can be discontinued. For problems or concerns related to this hospitalization call: [phone] weekdays, or [phone] weekends or nights. Call your doctor if you develop: --A fever over 101 degrees F --Severe pain --Nausea / vomiting, diarrhea, intolerance of food or drink --Heavy vaginal bleeding --Urinary frequency, urgency, or feeling of incomplete emptying of the bladder --If your wound is red, hot, swollen, tender or draining yellow/green fluid Activity level: You should be able to resume your usual activities of daily living (eating, drinking, washing, walking.). You can walk or climb stairs as long as you are not straining. You should avoid more vigorous exercise for at least 6 weeks. No lifting, pushing or pulling greater than 5-10 pounds for 6 weeks. No sexual intercourse and place nothing in the vagina for 6 weeks. Diet: Regular as tolerated, drink plenty of fluids. Use a stool softener (Colace) twice daily and Metamucil or Citrucel once or twice daily to keep your bowel movement soft and regular, so you do nothave to strain. If you miss two days without a bowel movement, take 30cc of Corbin???s Milk of Magnesia. You may take up to 30cc of Corbin???s Milk of Magnesia 4 times per day over a short amount of time (1 week). Driving: Do not drive until you are off of all narcotic medications and you are not feeling pain; usually about 1-2 weeks. Shower/Bath: Showering is fine. Do not soak in a tub for two weeks following surgery, this may cause your stitches to dissolve too early. Wound Care: Most women will experience some vaginal bleeding and discharge after surgery. You will want to havesome menstrual pads at home. You have dissolvable sutures in your vagina that do not need to be removed. Pain medications include Ibuprofen, Tylenol and Dilaudid. ?? Please use Ibuprofen 600 mg every 6 hours with food around the clock for the next several days and then after that use it only as needed. Drink plenty of fluids while you are home with this medication ?? You may alternate ibuprofen with Tylenol 650 mg every 6 hours. Maximum daily dose of Tylenol is 3000 mg. ?? Please use the Dilaudid 2mg every 4-6 hours as needed for pain that breaks through the Ibuprofen documented in this encounter Medications at Time of Discharge Medication Sig Dispensed Refills Start Date End Date acetaminophen (TYLENOL) 325 mg Tablet Take 2 tablets by mouth every 6 hours as needed for Pain. 30 tablet 1 09/24/2019 ibuprofen (ADVIL;MOTRIN) 600 mg Tablet Take 1 tablet by mouth every 6 hours. 30 tablet 12 09/24/2019 dilTIAZem (CARDIZEM CD) 180 mg Capsule, Sust. Release 24 hr Take 360 mg by mouth daily. 0 08/09/2019 irbesartan (AVAPRO) 75 mg Tablet Take 150 mg by mouth daily. 0 08/11/2019 lactobacillus combination no.8 (ADULT PROBIOTIC ORAL) Take by mouth daily. calcium carbonate (CALCIUM 500 ORAL) Take 1,000 mg by mouth daily. folic acid/multivit-min/lutei n (CENTRUM SILVER ORAL) Take by mouth daily. cholecalciferol, Vitamin D3, 2,000 unit Capsule Take by mouth daily. famotidine (PEPCID) 20 mg Tablet Take 20 mg by mouth daily as needed. simethicone (MYLICON) 80 mg Tablet, Chewable Take 80 mg by mouth every 6 hours as needed for Flatulence. CIS Free Text Med - Baby ASA 03/22/2004 docusate sodium (COLACE) 100 mg Capsule Take 2 capsules by mouth 2 times daily for 10 days. 20 capsule 09/24/2019 10/04/2019 HYDROmorphone (DILAUDID) 2 mg Tablet Take 1 tablet by mouth every 4 hours as needed for Pain (Severe pain (7-10)). 5 tablet 09/24/2019 11/12/2019 documented as of this encounter Progress Notes * Nessa Bran RN - 09/24/2019 9:55 AM EST Patient discharged from unit to home with friend. IV discontinued, tip intact, dressing applied, pressure held. Jennifer pad with scant amount of serosanguinous drainage. Discharge care instructions provided and explained. Patient verbalized understanding. Prescriptions were provided and patient left unit with all belongings in wheelchair accompanied by family and staff. * Ranjana Lott MD - 09/24/2019 5:57 AM EST Gynecology - Progress Note Evita Aguiar is a 69 y.o. woman whose PMH is significant for HTN, preDM, psoriatic arthritis and h/o SBO who is POD#1 s/p colpocleisis and posterior repair for stage 3 pelvic organ prolapse. Intraoperative Events: large enterocele, rectocele. At cystourethroscopy, patent ureteral orifices bilaterally with free spill of orange dye. Ureters in orthotopic position. Normal bladder, urethral mucosa. Subjective: Evita is feeling dizzy at the moment. She just ambulated for the first time for her backfill since the procedure. Reports ocassional dizziness at baseline. Repeat BP upon sitting 155/90.Passed backfill voiding trial this morning, 350cc in hat. Minimal vaginal bleeding overnight. She complains of moderate pelvic and rectal pain improved on PO tylenol, ibuprofen, and dilaudid. She is tolerating a regular diet and fluids with no N/V. Passing flatus. Denies chest pain, palpitations, shortness of breath, fevers / chills, nausea / vomiting, or leg pain. Physical Exam: Last Set of Vitals and range of vitals over past 24 hours: Last value Range last 24 hrs Temperature Temp: 37 ??C (98.6 ??F) Temp: [36.2 ??C (97.2 ??F)-37 ??C (98.6 ??F)] Heart Rate Heart Rate: 99 Heart Rate: [77-99] Blood Pressure BP: 129/81 BP: (129-168)/(79-90) Respiratory Rate Resp: 14 Resp: [14-19] SpO2 SpO2: 97 % SpO2: [95 %-100 %] Intake/Output Summary (Last 24 hours) at 09/24/2019 0607 Last data filed at 09/24/2019 0309 Gross per 24 hour Intake 1971 ml Output 1005 ml Net 966 ml I/O this shift: In: 1971 [P.O.:510; I.V.:1461] Out: 820 [Urine:800; Blood:20] UOP at ~90 cc/hr Body mass index is 27.82 kg/m??. Gen: Resting comfortably in bed. NAD. Neuro: Alert and oriented. Cardiac: RRR. No murmurs, rubs, or gallops. Pulm: CTAB. No wheezes, rales, or rhonci. Abd: +BS. Soft. Mildly distended, no tenderness to palpation. No rebound or guarding. : Peripad changed <1h, minimal blood Extremities: No lower extremity edema or calf tenderness, SCDs in place and operating. Laboratory (Last 24 Hours): No results for input(s): WBC, HGB, HCT, PLATELET in the last 168 hours. No results for input(s): NA, K, CL, CO2, BUN, CREATININE, MAGNESIUM, PHOS in the last 168 hours. Studies: none Assessment and Plan 69 y.o. female POD#1 s/p colpocleisis and posterior repair for stage 3 pelvic organ prolapse. Patient largely meeting post-operative milestones with some dizziness after ambulation this morning. Please refer to system-based assessment and plan below. Neuro: Pain well controlled on Tylenol, Toradol--> ibuprofen, and PO Dilaudid. Alert and oriented. -Dizziness - vitals stable, no concern for hemorrhage. Will re-evaluate later this morning to ensure resolution prior to discharge Cardiovascular: Vital signs wnl. Hemodynamically stable, no evidence of bleeding. Pulmonary: Adequate SpO2 on room air. -Encourage incentive spirometry. GI: Denies nausea, vomiting, constipation, diarrhea. Tolerating regular diet. -Advance diet as tolerated. -Zofran PRN, Colace. : Passed backfill trial this AM. Adequate UOP at ~90cc/hr. -Monitor intake and output. FEK: Tolerating PO intake. -mIVF discontinued Endocrine: No Issues ID: Afebrile, received prophylactic antibiotics preop, no evidence of infection -continue to monitor vital signs. Prophylaxis: - SCDs while in bed, encourage ambulation, incentive spirometry Dispo: Anticipate discharge later today pending resolution of dizziness. Code Status: Full Code Ranjana Lott MD PGY1 Obstetrics and Gynecology 09/24/2019 Associated attestation - Greg Vu MD - 09/24/2019 8:49 AM EST DIVISION FEMALE PELVIC MEDICINE & RECONSTRUCTIVE SURGERY STAFF NOTE I saw Ms. Aguiar today and reviewed her history. She is Post-operative day #1, s/p vaginectomy, total colpocleisis, posterior colporrhaphy. I have reviewed Dr. Mclaughlin's note above and agree with the history she outlines. The patient had dizziness which has improved with having breakfast. She was able to tolerate PO and is passing flatus.She was able to void after bladder backfill. I examined the patient and agree with the documented findings above. Pertinent findings include: Stable vitals, good urine output. I agree with the diagnosis of POD day #1. The patient is meeting milestones for discharge. I agree with the plans outlined above. Estimated date of discharge: today. I reviewed discharge instructions. GREG VU MD Division of Female Pelvic Medicine & Reconstructive Surgery * Eric Booker RN - 09/23/2019 9:17 PM EST Patient arrived to the unit from PACU and was oriented to the unit, call gandara system, and staff caring for her. VS captured * Essie Robles RN - 09/23/2019 8:33 PM EST 2015 Pt settled in PACU. VSS. Wakes easily, slightly confused and reoriented. Changed from simple mask to NC @ 2L. documented in this encounter H&P Notes * Greg Vu MD - 09/23/2019 4:30 PM EST Inpatient JUNIOR COPYWRITER - Admission Interval Note I have reviewed the pre-procedure H&P completed by Priti Sosa on 09/18/2019. (X) Condition unchanged since H&P originally performed. Interval Note: S: Evita Aguiar feels well today. No complaints / concerns. O: BP 151/81 (BP Location (NBP): Left arm) Pulse 77 Temp 36.8 ??C (98.2 ??F) (Temporal) Resp 18 Ht 143.5 cm (4' 8.5) Wt 57.3 kg (126 lb 4.8 oz) SpO2 97% BMI 27.82 kg/m?? Gen: Sitting in bed, appears comfortable CV: Normal rate, regular rhythm, normal S1 and S2, no murmurs / rubs / gallops Resp: Clear to auscultation bilaterally, no wheezes / crackles Abd: Soft, nontender, nondistended Ext: Warm, well perfused, nontender A/P: 69 y.o. female presents for planned colpocleisis for prolapse. No interval changes in history or physical exam. Will proceed with planned procedure. Gets sick of oxycodone - tolerated hydrocodone in the past Karen Shi MD PGY4 09/23/2019 I met with Ms. Aguiar today and she agrees to proceed with colpocleisis, posterior colporrhaphy. She had a negative cough stress test with support of the prolapse at her preop visit and we will not plan a sling. GREG VU MD documented in this encounter Miscellaneous Notes * Med Student Progress Note - Obinna Gallegos S - 09/24/2019 6:03 AM EST Gynecology - Progress Note- Post Op Check Evita Aguiar is an 69 y.o. woman post operative day 1 s/p vaginectomy with total colpocleisis and colporrhapy for vaginal prolapse with rectocele & enterocele. Subjective: She complains of mild dizziness after recently ambulating, but otherwise feels well... Pain is controlled on oral pain medications. She is ambulating with assistance. She is tolerating a regular diet. She reports moderate perineal pain with sitting and walking. Physical Exam: Last Set of Vitals and range of vitals over past 24 hours: Last value Range last 24 hrs Temperature Temp: 37 ??C (98.6 ??F) Temp: [36.2 ??C (97.2 ??F)-37 ??C (98.6 ??F)] Heart Rate Heart Rate: 99 Heart Rate: [77-99] Blood Pressure BP: 129/81 BP: (129-168)/(79-90) Respiratory Rate Resp: 14 Resp: [14-19] SpO2 SpO2: 97 % SpO2: [95 %-100 %] Physical Exam Constitutional: She is oriented to person, place, and time. Cardiovascular: Normal rate, regular rhythm and normal heart sounds. Pulmonary/Chest: Effort normal and breath sounds normal. Abdominal: Soft. Bowel sounds are normal. Neurological: She is alert and oriented to person, place, and time. Output at last bladder void: 350ml. Rate of 90cc/hr. Assessment and Plan: Evita Aguiar is an 69 y.o. year old woman POD #1 s/p vaginectomy with complete colpocleisis andposterior colporrhaphy in stable condition, pain controlled and adequate urine output. Pain Control: -- Continue acetaminophen/ibuprofen as needed for pain control. Dilaudid may also be used to help control pain for the immediate post-op period. Colace stool softener to be used for the next 2-5 daysafter surgery to prevent straining with bowel movements. Cardiac: --Resume hypertension medications after discharge pending Pulmonary: --adequate o2 sats on room air Gastrointestinal: no nausea or vomiting. Tolerating a regular diet without issue. Has not yet had a bowel movement but is passing flatus. Genitourinary: good urine output. Was able to void after backfill. Fluid/ Electrolytes: Discontinue IV fluids. Currently drinking on her own.. Ambulation: up with assistance. Normally has some dizziness, which exacerbated following anaesthesia. Should beambulating without issue, but should be supported to prevent falls. Evita is doing well and should be discharged later today if she has no concerning changes in health and meets all post-op milestones. Obinna Gallegos 09/24/2019 * Plan of Care - Eric Booker RN - 09/24/2019 4:03 AM EST Problem: Patient Care Overview Goal: Plan of Care Review Outcome: Ongoing (Interventions Implemented as Appropriate) 09/24/19353 Coping/Psychosocial Plan Of Care Reviewed With patient Plan of Care Review Progress progress toward functional goals as expected [phone] OUTCOME EVALUATION NOTE: OUTCOME SUMMARY: Patient able to rest for a few hours overnight. Upon arrival she reported some soreness in the surgical area, but declined intervention. As the night progressed her pain did get worse for a short period and medicated with PRN dilaudid with good effect. Has been creating sufficient urine output and is tolerating IV and PO fluids well. During voiding trial she was able to tolerate only about 250mL of backfill. Just after the backfill was complete and carpenter was removed she was able to void about 350mL. PLAN MOVING FORWARD: Discharge home if stable overnight INDIVIDUALIZED FALL PREVENTION INTERVENTIONS: Patient-specific fall risk factors per assessment: [current deficits]: Recent surgical procedure Assistance [level of assistance required for transfers and ambulation]: 1 assist Supervision [direct monitoring required during toileting and ADLs]: 1 person Surveillance [continuous indirect monitoring]: Hourly rounding Goal: Individualization & Mutuality 09/24/19353 Individualization Patient Specific Goals Discharge Home * Op Note - Greg Vu MD - 09/23/2019 8:05 PM EST [facility] [place] Operative Note Patient Name: Evita Aguiar : [id number] MR#: [id number] Case Date: 09/23/2019 Surgeon: Surgeon(s) and Role: * Greg Vu MD - Primary * Beth Nieves MD - Fellow * Karen Shi MD - Resident Preoperative diagnosis: vaginal prolapse, enterocele and rectocele ?? Postoperative diagnosis: vaginal prolapse, enterocele and rectocele ?? Procedure(s) (LRB): VAGINECTOMY, PARTIAL REMOVAL OF VAGINAL WALL (WRVU 7.5) (N/A) (vaginectomy with total colpocleisis) COLPORRHAPHY, POST RECTOCELE WITH OR W\O PERINEORRHAPHY (VU 11.5) (N/A) ?? Anesthesia: General laryngeal mask ?? Findings: large enterocele, rectocele. At cystourethroscopy, patent ureteral orifices bilaterally with free spill of orange dye. Ureters in orthotopic position. Normal bladder, urethral mucosa. ?? Complications: None Intake: Intraprocedure Crystalloid Total Lactated Ringers Volume (mL) 800 mL Transfusion None. Output: Estimated Blood Loss: 20 mL Urine Output:: 285 mL Other Output: (no other output recorded) ?? Drains: Carpenter to gravity bag drainage. ?? Specimens removed during surgery: None (vaginal tissue, discarded) Surgical Closure: Primary Closure - skin incision is completely closed without any wires, lilo, drains or other devices Disposition: awakened from anesthesia, extubated and taken to the recovery room in a stable condition, having suffered no apparent untoward event. Condition: doing well without problems (Please see the Surgical Encounter Summary for any Implant and Specimen details pertinent to this patient.) HPI/Surgical Indications: Ms. Aguiar is a 69 year old woman with symptomatic vaginal prolapse. Shehad a confirmed enterocele, rectocele on exam. She had a negative full bladder cough stress test with support of the prolapse. After reviewing options, she agreed to the above procedures. Procedure Description: The patient was brought to Operating Room #4. General anesthesia was induced. The patient was positioned in the dorsal lithotomy position with her legs in adjustable Yellofin stirrups. She was positioned in what was felt to be neurologically safe positioning. She received 2 gm of IV cefazolin IV prior to incision. Knee-high intermittent compression stockings were placed forDVT prophylaxis. She also received 5000 units heparin subcutaneously. Following examination under anesthesia, she was prepped and draped in the usual sterile fashion. A time-out protocol was adhered to, confirming the patient's identity, planned procedures, and safety measures. The area for colpectomy was mapped out for the vaginal rivera, marking four quadrants from the apex to ~ 2 cm proximal to the hymenal remnants. The posterior quadrants were dissected. The area was infiltrated with 1.5% lidocaine with 1:200,000 epinephrine solution. Similar quadrants were was mapped out and excised on the anterior vaginal wall. Next, sequential 2-0 PDS sutures were pursestring fashion from the apex of the vagina and progressing distally. The apical sutures incorporated the remnants of the uterosacral ligaments, plicating across the midline to reduce the enterocele. The distal vagina was reapproximated at the angles with interrupted 2-0 Vicryl sutures. The midline portion was left unclosed. Cystourethroscopy was then performed with the 70- degree cystoscope with the above reassuring findings and the bladder drained again with a Carpenter catheter after reprep of the urethra with Betadine. . The posterior colpoperineorrhaphy was initiated. The posterior fourchette and remaining posterior vagina was infiltrated with the lidocaine with epinephrine solution, and a wedge of posterior vaginalwall extending out along the peritoneal body was excised. The rectum was dissected away from the vaginal wall laterally on the distal posterior vagina. Interrupted 2-0 PDS sutures were then used to incorporate the lateral puborectalis muscle across the midline to provide a shelf of support. Severalinterrupted 2-0 PDS sutures were utilized. A running 2-0 Vicryl suture was then used to reapproximate the remaining unclosed portion at the apex of the vagina. A second running 2-0 Vicryl suture was used to reapproximate the posterior vaginal wall extending to the perineal body. A rectal examination confirmed no injury to the rectum. Sponge and needle counts were correct at the conclusion of the procedure. Infection Bundle used? N/A Attestation: Case Date: 09/23/2019 I was present and I participated during the entire procedure (does not need to include opening and closing). GREG VU MD 09/23/2019 * Brief Op Note - Greg Vu MD - 09/23/2019 7:45 PM EST Brief Operative Note Patient Name: Evita Aguiar : [id number] MR#: [id number] Case Date: 09/23/2019 Surgeon: Surgeon(s) and Role: * Greg Vu MD - Primary * Beth Nieves MD - Fellow * Karen Shi MD - Resident Preoperative diagnosis: vaginal prolapse, enterocele and rectocele Postoperative diagnosis: vaginal prolapse, enterocele and rectocele Procedure(s) (LRB): VAGINECTOMY, PARTIAL REMOVAL OF VAGINAL WALL (WRVU 7.5) (N/A) (vaginectomy with total colpocleisis) COLPORRHAPHY, POST RECTOCELE WITH OR W\O PERINEORRHAPHY (WRVU 11.5) (N/A) Anesthesia: General laryngeal mask Findings: large enterocele, rectocele. At cystourethroscopy, patent ureteral orifices bilaterally with free spill of orange dye. Ureters in orthotopic position. Normal bladder, urethral mucosa. Complications: None Intake: Intraprocedure Crystalloid Total Lactated Ringers Volume (mL) 800 mL Transfusion None. Output: Estimated Blood Loss: 20 mL Urine Output:: 285 mL Other Output: (no other output recorded) Drains: Carpenter to gravity bag drainage. Specimens removed during surgery: None Disposition: awakened from anesthesia, extubated and taken to the recovery room in a stable condition, having suffered no apparent untoward event. Condition: doing well without problems Attestation: Case Date: 09/23/2019 I was present and I participated during the entire procedure (does not need to include opening and closing). (Please see the Surgical Encounter Summary for any Implant and Specimen details pertinent to this patient.) documented in this encounter Plan of Treatment Not on file documented as of this encounter Procedures Procedure Name Priority Date/Time Associated Diagnosis Comments Post Colporrhaphy Rectocele W/Wo Perineorrhaphy (73242) 09/23/2019 4:55 PM EST Vaginal wall prolapse Enterocele Rectocele Mixed stress and urge urinary incontinence Remove Vagina Wall, Partial (13653) 09/23/2019 4:55 PM EST Vaginal wall prolapse Enterocele Rectocele Mixed stress and urge urinary incontinence documented in this encounter Visit Diagnoses Diagnosis Enterocele- Primary Hernia of unspecified site of abdominal cavity without mention of obstruction or gangrene Rectocele Prolapse of female pelvic organs Unspecified genital prolapse documented in this encounter Admitting Diagnoses Diagnosis Prolapse of female pelvic organs Unspecified genital prolapse documented in this encounter Administered Medications Inactive Administered Medications - up to 3 most recent administrations Medication Order MAR Action Action Date Dose Rate Site acetaminophen (TYLENOL) tablet 650 mg 650 mg, Oral, EVERY 6 HOURS PRN, Starting on Sun09/23/19 at 2026, Until Sun09/24/19 at 1352, Pain, - If ordered with other PRN pain medications give Ibuprofen first, then acetaminophen, then additional agents according to the pain scale. - Not to exceed 4g in 24 hours, Routine Given 09/24/2019 10:18 AM EST 650 mg Given 09/23/2019 8:42 PM EST 650 mg docusate sodium (COLACE) capsule 200 mg 200 mg, Oral, 2 TIMES DAILY, First dose on Sun09/23/19 at 2200, Until Discontinued, Routine Given 09/24/2019 8:00 AM EST 200 mg Given 09/23/2019 9:41 PM EST 200 mg famotidine (PEPCID) injection 20 mg 20 mg, Intravenous, EVERY 12 HOURS SCHEDULED (2 times per day), First dose on Sun09/23/19 at 2200, Until Discontinued Given 09/24/2019 8:01 AM EST 20 mg Given 09/23/2019 9:42 PM EST 20 mg HYDROmorphone (DILAUDID) tablet 2-4 mg 2-4 mg, Oral, EVERY 4 HOURS PRN, Starting on Sun09/23/19 at 2120, Until Sun09/24/19 at 1352, Pain, Severe pain (7-10), - Initial dose 2 mg. - If pain control not adequate in 60 minutes, give additional 2 mg., Routine Given 09/24/2019 8:45 AM EST 2 mg Given 09/24/2019 7:59 AM EST 2 mg Given 09/23/2019 11:51 PM EST 2 mg ibuprofen (ADVIL;MOTRIN) tablet 600 mg 600 mg, Oral, EVERY 6 HOURS, First dose on Sun09/24/19 at 2000, Until Discontinued, - Begin after ketorolac discontinued. , Routine ketorolac (TORADOL) injection 15 mg 15 mg, Intravenous, EVERY 6 HOURS, 3 doses, First dose on Sun09/24/19 at 0200, Last dose on Sun09/24/19 at 1400, Routine Given 09/24/2019 7:56 AM EST 15 mg Given 09/24/2019 3:12 AM EST 15 mg lactated ringers infusion 1,000 mL, at 100 mL/hr, Intravenous, CONTINUOUS, Starting on Sun09/23/19 at 2045, Until Sun09/24/19 at 1352 New Bag 09/24/2019 6:31 AM EST 1,000 mL s 100 mL/hr New Bag 09/23/2019 8:43 PM EST 1,000 mLs 100 mL/hr Ri ght Arm ondansetron (ZOFRAN) injection 4 mg 4 mg, Intravenous, EVERY 30 MIN PRN, Starting on Sun09/23/19 at 1929, Until Sun09/23/19 at 2111, Nausea, May repeat 4 mg once in 30 minutes. If multiple antiemetics ordered, use ondansetron first and if ineffective use prochlorperazine second and if ineffective use promethazine, PACU Recovery Given 09/23/2019 9:05 PM EST 4 mg Right Arm phenazopyridine (PYRIDIUM) tablet 200 mg 200 mg, Oral, ONCE, On Sun09/23/19 at 1445, 1 dose, Day of Surgery (Day of Procedure) Given 09/23/2019 2:33 PM EST 200 mg sodium chloride 0.9 % (flush) flush 5 mL 5 mL, Intravenous, 2 TIMES DAILY, First dose on Sun09/23/19 at 214, Until Discontinued, Routine Given 09/24/2019 8:00 AM EST 5 mLs Given 09/23/2019 9:41 PM EST 5 mLs documented in this encounter Active and Recently Administered Medications Times are shown in EST. Scheduled Medication Order 09/22/2019 09/23/2019 09/24/2019 ceFAZolin (ANCEF) 2g in dextrose 5% 100 mL (COMPLETED) 2 g, Intravenous, ONCE, 1 dose, On Sun09/23/19 at 1445, Administer over 30 Minutes, Redose every 3 hours if CrCl is greater than 20. Redose every 8 hours if CrCl is less than 20., Day of Surgery (Day of Procedure), Indication for (Active or Suspected): Prophylaxis 1708 (Given - Provider: Angelica Maddox CRNA) docusate sodium (COLACE) capsule 200 mg 200 mg, Oral, 2 TIMES DAILY, First dose on Sun09/23/19 at 2200, Until Discontinued, Routine 2140 (Given - Provider: Eric Booker RN) 0800 (Given - Provider: Nessa Bran, EMMA) famotidine (PEPCID) injection 20 mg 20 mg, Intravenous, EVERY 12 HOURS SCHEDULED (2 times per day), First dose on Sun09/23/19 at 2200, Until Discontinued 2141 (Given - Provider: Eric Booker RN) 0801 (Given - Provider: Nessa Bran RN) heparin (Porcine) subcutaneous injection 5,000 Units (COMPLETED) 5,000 Units, Subcutaneous, ONCE, 1 dose, On Sun09/23/19 at 1445, Day of Surgery (Day of Procedure), Routine 1715 (Given - Provider: Angelica Maddox CRNA) ibuprofen (ADVIL;MOTRIN) tablet 600 mg(Linked Group 1) 600 mg, Oral, EVERY 6 HOURS, First dose on Sun09/24/19 at 2000, Until Discontinued, - Begin after ketorolac discontinued. , Routine ketorolac (TORADOL) injection 15 mg(Linked Group 1) 15 mg, Intravenous, EVERY 6 HOURS, 3 doses, First dose on Sun09/24/19 at 0200, Last dose on Sun09/24/19 at 1400, Routine 0312 (Given - Provid er: Eric Booker RN)0756 (Given - Provider: Nessa Bran RN) phenazopyridine (PYRIDIUM) tablet 200 mg (COMPLETED) 200 mg, Oral, ONCE, On Sun09/23/19 at 1445, 1 dose, Day of Surgery (Day of Procedure) 1433 (Given - Provider: Trina Lopez RN) sodium chloride 0.9 % (flush) flush 5 mL 5 mL, Intravenous, 2 TIMES DAILY, First dose on Sun09/23/19 at 2145, Until Discontinued, Routine 2140 (Given - Provider: Eric Booker RN) 0800 (Given - Provider: Nessa Bran RN) Continuous Medication Order 09/22/2019 09/23/2019 09/24/2019 lactated ringers infusion 1,000 mL, at 100 mL/hr, Intravenous, CONTINUOUS, Starting on Sun09/23/19 at 2045, Until Sun09/24/19 at 1352 2043 (New Bag - Provider: Essie Robles, RN) 0631 (New Bag - Provider: Ivette Patrick, EMMA)0831 (Stopped - Provider: Nessa Bran, RN) PRN Medication Order 09/22/2019 09/23/2019 09/24/2019 acetaminophen (TYLENOL) tablet 650 mg 650 mg, Oral, EVERY 6 HOURS PRN, Starting on Sun09/23/19 at 2026, Until Sun09/24/19 at 1352, Pain, - If ordered with other PRN pain medications give Ibuprofen first, then acetaminophen, then additional agents according to the pain scale. - Not to exceed 4g in 24 hours, Routine 2041 (Given - Provider: Essie Robles, EMMA) 1018 (Given - Provider: Nessa Bran, EMMA) HYDROmorphone (DILAUDID) injection 0.2 mg 0.2 mg, Intravenous, ONCE PRN, 1 dose, Starting on Sun09/23/19 at 2120, Until Sun09/24/19 at 1352, Pain, PRN for Severe Pain (7-10) or if unable to take P.O. medication, PRN for Severe Pain (7-10) or if unable to take P.O. medication, Routine HYDROmorphone (DILAUDID) tablet 2-4 mg 2-4 mg, Oral, EVERY 4 HOURS PRN, Starting on Sun09/23/19 at 2120, Until Sun09/24/19 at 1352, Pain, Severe pain (7-10), - Initial dose 2 mg. - If pain control not adequate in 60 minutes, give additional 2 mg., Routine 5161 (Given - Provider: Eric Booker RN) 0759 (Given - Provider: Nessa Bran, EMMA)0845 (Given - Provider: Nessa Bran, EMMA) lidocaine (XYLOCAINE) 10 mg/mL (1 %) injection 3 mg 3 mg (0.3 mL), Subcutaneous, ONCE PRN, 1 dose, Starting on Sun09/23/19 at 2120, Until Sun09/24/19 at 1352, for discomfort with PIV insertion, Routine lidocaine-EPINEPHrine 1.5 %-1:200,000 injection (CANCELED) ONCE PRN, Starting on Sun09/23/19 at 1821, Until Sun09/24/19 at 1352, Intra-Operative (Intra-Procedure), Routine 1820 (Given - Provider: Greg Vu MD)1921 (Given - Provider: Greg Vu MD) ondansetron (ZOFRAN) injection 4 mg (CANCELED) 4 mg, Intravenous, EVERY 30 MIN PRN, Starting on Sun09/23/19 at 1929, Until Sun09/23/19 at 2112, Nausea, May repeat 4 mg once in 30 minutes. If multiple antiemetics ordered, use ondansetron first and if ineffective use prochlorperazine second and if ineffective use promethazine, PACU Recovery 2104 (Given - Provider: Essie Robles RN) ondansetron (ZOFRAN) injection 4 mg 4 mg, Intravenous, EVERY 8 HOURS PRN, Starting on Sun09/23/19 at 2120, Until Sun09/24/19 at 1352, Nausea, Routine sodium chloride 0.9 % (flush) flush 5-20 mL 5-20 mL, Intravenous, EVERY 1 MIN PRN, Starting on Sun09/23/19 at 2120, Until Sun09/24/19 at 1352, flush, Flush pertains to all indwelling lines. Flush per protocol found in the job aid using the link provided on this medication record., Routine Linked Groups Order Group 1: ketorolac (TORADOL) injection 15 mgJump to med 15 mg, Intravenous, EVERY 6 HOURS, 3 doses, First dose on Sun09/24/19 at 0200, Last dose on Sun09/24/19 at 1400, Routine Followed by ibuprofen (ADVIL;MOTRIN) tablet 600 mgJump to med 600 mg, Oral, EVERY 6 HOURS, First dose on Sun09/24/19 at 2000, Until Discontinued, - Begin after ketorolac discontinued. , Routine documented in this encounter Care Teams Area Captain Relationship Specialty Start Date End Date Arnoldo Lopez DO [address] [place] [address] PCP - General Family Medicine 06/17/19 documented as of this encounter
--- OUTSIDE RECORDS SUMMARY | 2024-07-28 15:42 | XMS_ITS | Encounter Summary ---
Author Organization [facility]ly [facility] [place] [address] Care Team Providers Care Wagon Driller Name Role Phone Arnoldo Lopez DO Primary Care Provider Reason for Visit * Auth/Cert Specialty Diagnoses [...] Expiration Date Visits Re quested Visits Authorized [id number] 1 1 Encounter Details Date Type Department Care Team (Late st Contact Info) Description 09/23/2019 2:34 PM EST - 09/23/2019 6:02 PM EST [place] [address] Greg Vu MD [facility] [place] [address] VAGINECTOMY, PARTIAL REMOVAL OF VAGINAL WALL (WRVU 7.5) Social History Tobacco Use Types Packs/Day Years [...] Sign Reading Time Taken Comments Blood Pressure 151/81 09/23/2019 2:21 PM EST Pulse 77 09/23/2019 2:21 PM EST Temperature 36.8 ??C (98.2 ??F) 09/23/2019 2:21 PM ES T Respiratory Rate 18 09/23/2019 2:21 PM EST Oxygen Saturation 97% 09/23/2019 2:21 PM EST Inhaled Oxygen Concentration - - [...] Evita Aguiar Patient Age: 69 y.o. Language: Chadian Race: White Ethnicity: Not nor Admit date: 09/23/2019 Discharge date and time: 09/24/19 Attending Physician: Greg Vu MD Discharge Physician: Greg Vu MD Follow-up Recommendations for Providers: -- post-op follow up in 4-6 weeks Inpatient Provider Contact Information: [facility] Department of Urogynecology Contact: weekdays, or [phone] weekends or nights Discharge Diagnoses (Hospital Problems) [...] (See Comments) I felt awful ??? Oxycodone [place] poorly. Did fine with hydrocodone ??? Papaya [...] at the time of discharge, please call [phone] (Urogynecology) for an appointment in 6 weeks. Future Appointments Date Time Provider Department Center 10/28/2019 10:00 AM Greg Vu MD [facility] OBG 5L [facility] Patient Discharge Instructions: Special Physician Instructions: If you are still needing a catheter to drain your bladder, please follow the instructions given to you separately for when to use the catheter and how to care for it. In addition, please call to check in with the urogynecology office nurse at [phone] to review how your bladder is working and when the catheter use can be discontinued. For problems or concerns related to this hospitalization call: [phone] weekdays, or [phone] weekends or nights. Call your doctor if [...] Vu MD Obstetrics and Gynecology at [facility] Arrive at: [facility] [employer] Area Discharge References/Attachments None Provider Contact Information: Arnoldo Lopez DO [phone] documented in this encounter Discharge Instructions * Patient Instructions* Ranjana Lott MD - 09/23/2019 5:25 PM EST Images from the original note were not included. Follow up appointments and recommendations: If not made at the time of discharge, please call [phone] (Urogynecology) for an appointment in 6 weeks. Future Appointments Date Time Provider Department Center 10/28/2019 10:00 AM Greg Vu MD [facility] OBG 5L [facility] Patient Discharge Instructions: Special Physician Instructions: If you are still needing a catheter to drain your bladder, please follow the instructions given to you separately for when to use the catheter and how to care for it. In addition, please call to check in with the urogynecology office nurse at [phone] to review how your bladder is working and when the catheter use can be discontinued. For problems or concerns related to this hospitalization call: [phone] weekdays, or [phone] weekends or nights. Call your doctor if [...] MD - 09/23/2019 4:30 PM EST Inpatient OVERLAY PLASTICIAN - Admission Interval Note I have reviewed [...] Notes * Med Student Progress Note - GallegosObinna S - 09/24/2019 6:03 AM EST Gynecology [...] Progress progress toward functional goals as expected 3113 29 OUTCOME EVALUATION NOTE: OUTCOME SUMMARY: Patient able [...] MD - 09/23/2019 8:05 PM EST [facility] Operative Note Patient Name: Evita Aguiar : [id number] MR#: [id number] Case Date: 09/23/2019 Surgeon: Surgeon(s) and Role: [...] WITH OR W\O PERINEORRHAPHY (WRVU 11.5) (N/A) ?? Anesthesia: General laryngeal mask [...] Operative Note Patient Name: Evita Aguiar : [id number] MR#: [id number] Case Date: 09/23/2019 Surgeon: Surgeon(s) and Role: [...] Diagnosis Comments Post Colporrhaphy Rectocele W/Wo Perineorrhaphy (01265) 09/23/2019 4:55 PM EST Vaginal wall prolapse Enterocele Rectocele Mixed stress and urge urinary incontinence Remove Vagina Wall, Partial (81395) 09/23/2019 4:55 PM EST Vaginal wall prolapse Enterocele Rectocele Mixed stress and urge urinary incontinence documented in this encounter Visit Diagnoses Diagnosis Enterocele- Primary Hernia of unspecified site of abdominal cavity without mention of obstruction or gangrene Rectocele Vaginal wall prolapse Unspecified prolapse of vaginal rivera Enterocele Hernia of unspecified site of abdominal cavity without mention of obstruction or gangrene Rectocele Mixed stress and urge urinary incontinence Mixed incontinence urge and stress (male)(female) documented in this encounter Admitting Diagnoses Diagnosis [...] 1,000 mLs 100 mL/hr Ri ght Arm lidocaine-EPINEPHrine 1.5 %-1:200,000 injection ONCE PRN, Starting on Sun09/23/19 at 1821, Until Sun09/24/19 at 1352, Intra-Operative (Intra-Procedure), Routine Given 09/23/2019 7:22 PM EST 4 mLs Given 09/23/2019 6:21 PM EST 17 mLs ondansetron (ZOFRAN) injection 4 mg 4 mg, [...] on Sun09/23/19 at 2145, Until Discontinued, Routine Given 09/24/2019 8:00 AM [...] 0800 (Given - Provider: Nessa Bran RN) famotidine (PEPCID) injection 20 mg 20 mg, Intravenous, EVERY 12 HOURS SCHEDULED (2 times per day), First dose on Sun09/23/19 at 2200, Until Discontinued 2141 (Given - Provider: Eric Booker RN) 0801 (Given - Provider: Nessa Bran RN) heparin (Porcine) subcutaneous injection 5,000 Units (COMPLETED) 5,000 Units, Subcutaneous, ONCE, 1 dose, On Sun09/23/19 at 1445, Day of Surgery (Day of Procedure), Routine 171 (Given - Provider: Angelica Maddox CRNA) ibuprofen [...] 0800 (Given - Provider: Nessa Bran, EMMA) Continuous Medication Order 09/22/2019 09/23/2019 09/24/2019 lactated ringers infusion 1,000 mL, at 100 mL/hr, Intravenous, CONTINUOUS, Starting on Sun09/23/19 at 2045, Until Sun09/24/19 at 1352 204 (New Bag - Provider: Essie Robles, RN) 0631 (New Bag - Provider: Ivette Patrick, EMMA)0831 (Stopped - Provider: Nessa Bran, EMMA) PRN Medication Order 09/22/2019 09/23/2019 09/24/2019 acetaminophen (TYLENOL) tablet 650 mg 650 mg, Oral, EVERY 6 HOURS PRN, Starting on Sun09/23/19 at 2026, Until Sun09/24/19 at 1352, Pain, - If ordered with other PRN pain medications give Ibuprofen first, then acetaminophen, then additional agents according to the pain scale. - Not to exceed 4g in 24 hours, Routine 2041 (Given - Provider: Essie Robles RN) 1018 (Given - Provider: Nessa Bran, EMMA) [...] 60 minutes, give additional 2 mg., Routine 2350 (Given - Provider: Eric Booker RN) 0759 (Given - Provider: Nessa Bran, EMMA)0882 (Given - Provider: Nessa Bran, EMMA) lidocaine [...] on Sun09/23/19 at 1929, Until Sun09/23/19 at 211, Nausea, May repeat 4 mg once in [...] Routine documented in this encounter Care Teams Wagon Driller Relationship Specialty Start Date End Date Arnoldo Lopez DO [address] [place] [id number] PCP - General Family Medicine 06/17/19 documented as of this encounter
--- OUTSIDE RECORDS SUMMARY | 2024-07-28 15:42 | XMS_ITS | Continuity of Care Document ---
Author Organization [facility] Address [address] [place] [address] Care Team Providers Care Mutual Funds Agent Name Role Phone Arnoldo Lopez Primary Care Physician [phone] Encounter NCTY_PR Date(s): 04/03/23 - 04/03/23 [facility] [address] [place] [address] Discharge Disposition: Home or Self Care Attending Physician: Arnoldo Lopez DO Admitting Physician: Arnoldo Lopez DO Referring Physician: Arnoldo Lopez DO Allergies, Adverse Reactions, Alerts Substance Reaction Severity Status PAPAYA Unknown Active TREE AND SHRUB POLLEN Unknown Active ALOE VERA Unknown Active PINEAPPLE Unknown Active WOOL Unknown Active iodinated radiocontrast dyes Rapid heart beat Unknown Active Assessment and Plan Future Appointments Future Scheduled Tests Laboratory* Hemoglobin A1c 10/03/23 * Hemoglobin A1c 01/01/23 Immunizations Given and Recorded Vaccine Date Status Refusal Reason SARS-CoV-2 (COVID-19) mRNA-1273 vaccine 01/21/21 R ecorded SARS-CoV-2 (COVID-19) mRNA-1273 vaccine 12/23/20 R ecorded Medications acetaminophen 0 Refill(s) Start Date: 10/03/22 Status: Ordered amLODIPine 5 mg oral tablet 1 tab, Oral, Daily, # 90 tab, 3 Refill(s), Pharmacy: [facility] #[id number] Start Date: 09/01/22 Status: Ordered aspirin 81 mg oral delayed release tablet 81 mg = 1 tab, Oral, Daily, # 90 tab, 0 Refill(s) Start Date: 10/03/22 Status: Ordered dilTIAZem 180 mg/24 hours oral capsule, extended release 360 mg = 2 cap, Oral, Daily, # 180 cap, 1 Refill(s), Pharmacy: [facility][id number] Start Date: 01/31/23 Status: Ordered docusate sodium 100 mg oral capsule 100 mg = 1 cap, Oral, BID, PRN as needed for constipation, # 20 cap, 0 Refill(s) Start Date: 10/03/22 Status: Ordered irbesartan 150 mg oral tablet See Instructions, TAKE 1 TABLET BY MOUTH EVERY DAY, # 90 tab, 3 Refill(s), Pharmacy: [facility] #[id number] Start Date: 11/06/22 Status: Ordered simethicone 80 [...] 10/28/88 Completed Results Laboratory List Name Date Basic Metabolic Panel (BMP) 04/03/23 Hemoglobin A1c 04/03/23 Most recent to oldest [Reference Range]: 1 BUN [7-18 mg/dL] 13 mg/dL (04/03/23 2:00 PM) Glucose Level [74-106 mg/dL] 129 mg/dL *HI* (04/03/23 2:00 PM) Potassium Level [3.5-5.1 mmol/L] 4.1 mmo l/L (04/03/23 2:00 PM) Sodium Level [136-145 mmol/L] 130 mmol/L *LOW* (04/03/23 2:00 PM) Calcium Level [8.5-10.1 mg/dL] 9.3 mg/dL (04/03/23 2:00 PM) CO2 [21-32 mmol/L] 24 mmol/L (04/03/23 2:00 PM) eGFR Non-AA [>=60] 93 (04/03/23 2:00 PM) eGFR AA [>=60] 93 (04/03/23 2:00 PM) Hemoglobin A1c [4.0-6.0 %] 7.2 % *HI* (04/03/23 1:59 PM) Chloride Level [98-107 mmol/L] 95 mmol/L *LOW* (04/03/23 2:00 PM) Creatinine Level [0.55-1.02 mg/dL] 0.63 mg/dL (04/03/23 2:00 PM) Social History Social History Type Response Tobacco Former tobacco user Tobacco Use:. 1 Sex Female 1Quit 2016 Patient Care team information Care Team Personnel Name: Arnoldo Lopez DO Position: Physician Member Role: Primary Care Physician Address: Address: [facility] [id number] [place] [address]
--- OUTSIDE RECORDS SUMMARY | 2024-07-28 15:42 | XMS_ITS | Encounter Summary ---
Author Organization [facility] [place] [address] Care Team Providers Care Sales Representative Advertising Name Role Phone Arnoldo Lopez DO Primary Care Provider [phone] Reason for Visit * Reason Comments Pre-op Exam Encounter Details Date Type Department Care Team (Late st Contact Info) Description 09/18/2019 1:15 PM EST Office Visit Obstetrics and Gynecology at [facility] [place] [address] Priti Sosa APRN [facility] [place] [address] Vaginal wall prolapse Social History Tobacco Use Types Packs/Day Years Used Date Smoking Tobacco: Former Cigarettes 0.5 12 1 - 08/14/2009 Smokeless Tobacco: Never Sex and Gender Information Value Date Recorded Sex Assigned at Not on file Gender Identity Not on file Sexual Orientation Not on file documented as of this encounter Last Filed Vital Signs Vital Sign Reading Time Taken Comments Blood Pressure 127/65 09/18/2019 1:19 PM EST Pulse 98 09/18/2019 1:19 PM EST Temperature 36.6 ??C (97.9 ??F) 09/18/2019 1:19 PM ES T Respiratory Rate 16 09/18/2019 1:19 PM EST Oxygen Saturation 99% 09/18/2019 1:19 PM EST Inhaled Oxygen Concentration - - Weight 58.1 kg (128 lb) 09/18/2019 1:19 PM EST Height 143.5 cm (4' 8.5) 09/18/2019 1:19 PM EST Body Mass Index 28.19 09/18/2019 1:19 PM EST documented in this encounter Progress Notes * Priti Sosa, ELECTRICAL LINEMAN - 09/18/2019 1:15 PM EST Date of Visit: 09/18/2019 Planned Surgery Date: 09-22-19 Planned Procedure: Colpocleisis with enterocele/rectocele repair Indications/Pre-op Diagnosis: Vaginal vault prolapse HISTORY OF PRESENT ILLNESS: Ms. Aguiar is a 69 y.o. para 1 woman who presents for her preoperativeexamination. Patient presents with a history of symptomatic vaginal prolapse after hysterectomy. She desires surgical repair. Please see prior encounter notes for more detail. She states that she has not had urinary leakage even before she noticed her prolapse. She wants to be sure we know she is allergic to iodinated IV contrast media. Her PCP has recommended hydrocodone for her postop opioid as she has had bad reaction to morphine and oxycodone. She is quite frightened of the possibility of another bowel obstruction after this surgery like shehad with her MATEO. Her right arm is very sore after a fracture last winter--please avoid if possible. REVIEW OF SYMPTOMS/FUNCTIONAL STATUS: Chest pain: no Shortness of breath: no Can you walk 1/2 mile or more? yes Can you go up more than 2 flights of stairs? yes Patient can dress herself? yes Prepare meals herself? yes Bleeding disorder (h/o nose bleeds, excessive bleeding following a surgical procedure?): no Personal or Family history of blood clots?: no Sexually active?: no Last PAP smear: Vaginal (post hyst) negative in 2001 Past anesthesia problems?: No, but worried about prior bowel obstruction Past Medical History: Diagnosis Date ??? Fracture, humerus 2019 ??? Hypertension ??? Prediabetes ??? Psoriatic arthritis ??? Small bowel obstruction after hysterectomy, resolved with decompression NGT Past Surgical History: Procedure Laterality Date ??? APPENDECTOMY 1982 ??? HYSTERECTOMY, TOTAL ABDOMINAL 1989 endometriosis, with USO ??? SALPINGO-OOPHORECTOMY endometriosis ??? TONSILLECTOMY Social History Socioeconomic History ??? Marital status: Single Spouse name: Not on file ??? Number of children: Not on file ??? Years of education: Not on file ??? Highest education level: Not on file Occupational History ??? Occupation: retired sales secretary Social Needs ??? Financial resource strain: Not on file ??? Food insecurity: Worry: Not on file Inability: Not on file ??? Transportation needs: Medical: Not on file Non-medical: Not on file Tobacco Use ??? Smoking status: Former Smoker Packs/day: 0.50 Years: 12.00 Pack years: 6.00 Types: Cigarettes Last attempt to quit: 08/14/2009 Years since quittin.1 ??? Smokeless tobacco: Never Used Substance and [...] file Gets together: Not on file Attends jewish service: Not on file Active member of [...] Narrative Lives alone. Works part-time as a sales secretary. Prior chef's assistant. Family History Problem Relation Age of Onset ??? Heart Failure Mother ??? Hypertension Mother ??? Diabetes Mother ??? Colorectal Cancer Father ??? Lung Cancer Father ??? Breast Cancer Sister ??? Diabetes Sister Allergies Allergen Reactions ??? Aloe Vera ??? Iodinated Contrast Media ??? Metformin Diarrhea ??? Papaya Hives ??? Pineapple Hives ??? Soy Outpatient Medications Marked as Taking for the 09/18/19 encounter (Office Visit) with Hank Sosa APRN Medication Sig Dispense Refill ??? dilTIAZem (CARDIZEM [...] 20 mg by mouth daily as needed. ??? simethicone (MYLICON) 80 mg Tablet, Chewable Take 80 mg by mouth every 6 hours as needed for Flatulence. ??? CIS Free Text Med - Baby ASA Blood pressure 127/65, pulse 98, temperature 36.6 ??C (97.9 ??F), temperature source Oral, resp. rate 16, height 143.5 cm (4' 8.5), weight 58.1 kg (128 lb), SpO2 99 %. EXAM: General: alert/oriented x 3, NAD, cooperative ENT: No lymphadenopathy, pharynx clear, Lots of dental work Neck: No lymphadenopathy, no thyromegaly Chest: clear to ausc bilaterally COR: 78 regular no murmur Abdomen: rounded soft nontender Pelvic: NEGATIVE cough stress test Rectal: deferred to operating room. Extremities: no calf tenderness, swelling Opioid Risk Tool Female Male 1. Family history of Substance Abuse Alcohol [] 1 [x] 3 Illegal Drugs [] 2 [] 3 Prescription Drugs [] 4 [] 4 2. Personal History of Substance Abuse Alcohol [] 3 [] 3 Illegal Drugs cocaine in her early 40s [x] 4 [] 4 Prescription Drugs [] 5 [] 5 3. Age (odalys box if 16-45) [] 1 [] 1 4. History of Preadolescent Sexual Abuse [] 3 [] 0 5. 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 Drinks a couple rum & seltzers daily. Opioid Risk Category: moderate. She prefers to avoid opioids if possible The patient has signed the opioid consent in anticipation of requiring opioid pain medications following their surgery. IMPRESSION: Evita Aguiar is a 69 y.o. woman with vaginal vault prolapse who desires surgical repair. Her full COURT REPORTER today is negative. PLAN: ??? We will proceed with the above procedures on 09-22-19. ??? Anesthesia preference: per anesthesia and patient. FPMRS pre and postop handouts given and discussed in detail. ??? (x) Medications and herbal preparations reviewed Discussed: (x) Discontinuation of all herbal preparations, vitamin E 7-10 days preop (x) ASA stop now (x) Hormones: NA ?? (x) Discontinue Solid foods at midnight ?? (x) Clear liquids (water, apple juice, kurtis rocio, or black coffee) may be consumed until 2 hours prior to scheduled procedure. PROCEDURE CONSENT: ?? (x) Already reviewed with patient and signed by Dr. Hearn on 08-15-19. As part of the consent for surgery, we reviewed that there are health care personnel who are trainees at [facility], which includes medical students, resident physicians, and fellows. As a part of the start of any surgery, a pelvic exam is usually performed by the attending physician, which then may be repeated by the trainee with supervision. The patient does give her permission for a trainee to perform an exam under anesthesia. Priti Sosa APRN Division of Female Pelvic Medicine and Reconstructive Surgery documented in this encounter Plan of Treatment Not on file documented as of this encounter Visit Diagnoses Diagnosis Vaginal wall prolapse Unspecified prolapse of vaginal rivera documented in this encounter Care Teams Sales Representative Advertising Relationship Specialty Start Date End Date Arnoldo Lopez DO [address] [place] [address] PCP - General Family Medicine 06/17/19 documented as of this encounter
--- OUTSIDE RECORDS SUMMARY | 2024-07-28 15:42 | XMS_ITS | Encounter Summary ---
Author Organization [facility] [place] [address] Care Team Providers Care Dispatch Supervisor Name Role Phone Arnoldo Lopez DO Primary Care Provider [phone] Reason for Visit * Auth/Cert Specialty Diagnoses [...] Expiration Date Visits Re quested Visits Authorized [id number] 1 1 Encounter Details Date Type Department Care Team (Late st Contact Info) Description 09/23/2019 4:56 PM EST Anesthesia Event [place] [address] Hi You MD [facility] [place] [address] Angelica Maddox CRNA [facility] [place] [address] Anesthesia Record Procedure Summary Procedure Name Responsible Anesthesiologist Anesthesia Start Time Anesthesia Stop Time VAGINECTOMY, PARTIAL REMOVAL OF VAGINAL WALL (WRVU 7.5) (Pelvis) Hi You MD 09/23/19 1656 09/23/192001 Events Date Time Event Comment 09/23/2019 1441 1656 AN Verify 1656 Start 1656 An Start Data 1701 An Induction 1703 An Intubation 1705 Anesthesia Ready 172 Procedure Start 172 Quick Note Lidocaine with epinephrine injection by surgeon 1856 Handoff Intra-procedure anesthesia care was transferred after review of the patient's history, current anesthetic/surgical status and plan, according to the ANES Provider Handoff Checklist. 1952 Extubation/LMA Out 1955 an stop data 1958 Recovery or ICU Handoff Kaley ent care was transferred to the destination unit staff after review of the patient's medical history, current anesthetic/surgical status and plan, according to the Provider Handoff Checklist. 2001 Stop Meds Name Total Propofol 310 mg Propofol INF 323.75 mg fentaNYL 100 mcg IV Lidocaine 100 mg Dexamethasone 4 mg Ondansetron 8 mg ePHEDrine 5 mg PHENYLephrine 80 mcg ceFAZolin (ANCEF) 2g in dextrose 5% 100 mL 2 g heparin (Porcine) subcutaneous injection 5,000 Units 5,000 Units Dexmedetomidine 8 mcg Ketorolac 15 mg Lactated Ringers 800 mL * Agents Name O2 Air N2O Sevoflurane (et) * Blood No blood administrations on file. Lines, Drains, and Airways Type Details Placement Removal Supraglottic Mask Ventilation: Ea sy (1); LMA Type: Unique; LMA Size: 3; Inserted by: MANA Maddox; Removal Date: 09/23/19; Removal Time: 195209/23/191702 by Angelica Maddox CRNA 09/23/191952 by Nancy Denise CRNA Incision 09/23/19; 172; vagi na; 06/26/22 (LDA cleanup utility RA#[id number]); 1715 (LDA cleanup utility RA#[id number]) 09/23/19 172 by Renée Sims RN 06/26/22 171 by Timothy Watts Urethral Catheter 09/23/19; 1723; Genitourinary surgery, Surgery longer than 2 hours, Need for intraoperative urine output monitoring; indwelling double lumen catheter; latex, silicone coated; 14; inserted at this facility; 1; 5; 5; other (see comments) (under anesthesia); leg bag to dependent drainage; other (see comments) (per MD order); 09/24/19; 0600 09/23/19 1723 by Renée Sims RN 09/24/19 0600 by Eric Booker RN (RETIRED) Peripheral IV Line - Single Lumen 09/23/19; 2021; (arrived from OR with IV right hand); 09/24/19; 0848 09/23/192021 by Essie Robles RN 09/24/19 0848 by Nessa Bran RN documented in this encounter Social History Tobacco Use Types Packs/Day Years [...] on file documented as of this encounter OR Notes * Anesthesia Preprocedure Evaluation - Shauna Correa MD - 09/23/2019 2:39 PM EST Images from the original note were not included. Pre-Anesthesia Evaluation for: Evita Aguiar a 69 y.o. female. Procedure(s): VAGINECTOMY, PARTIAL REMOVAL OF VAGINAL WALL (WRVU 7.5) ENTEROCELE REPAIR \ VAGINAL APPROACH (WRVU 7.57) COLPORRHAPHY, POST RECTOCELE WITH OR W\O PERINEORRHAPHY (WRVU 11.5) URETHRAL SUSPENSION, SLING\FASCIA OR SYNTHETIC (WRVU 12.13) Patient Active Problem List Diagnosis ??? Enterocele ??? Rectocele ??? Mixed stress and urge urinary incontinence Past Medical History: Diagnosis Date ??? Fracture, humerus 2019 ??? Hypertension ??? Prediabetes ??? Psoriatic arthritis ??? Small bowel obstruction after hysterectomy, resolved with decompression NGT Past Surgical History: Procedure Laterality Date ??? APPENDECTOMY 1982 ??? HYSTERECTOMY, TOTAL ABDOMINAL 1989 endometriosis, with USO ??? SALPINGO-OOPHORECTOMY endometriosis ??? TONSILLECTOMY Social History Tobacco Use ??? Smoking status: Former Smoker Packs/day: 0.50 Years: 12.00 Pack years: 6.00 Types: Cigarettes Last attempt to quit: 08/14/2009 Years since quittin.1 ??? Smokeless tobacco: Never Used Substance Use Topics ??? Alcohol use: Not on file Social History Substance and Sexual Activity Drug Use Never Allergies Allergen Reactions ??? Aloe Vera ??? Iodinated Contrast Media ??? Metformin Diarrhea ??? Morphine Other (See Comments) I felt awful ??? Oxycodone [place] poorly. Did fine with hydrocodone ??? Papaya Hives ??? Pineapple Hives ??? Soy Medications: MAR and/or home medications have been reviewed. Physical Exam: Most Recent Vitals: 09/23/19 1421 BP: 151/81 Pulse: 77 Resp: 18 Temp: 36.8 ??C (98.2 ??F) SpO2: 97% Body mass index is 27.82 kg/m??. Height: 143.5 cm (4' 8.5) Weight: 57.3 kg (126 lb 4.8 oz) Airway Assessment: Mallampati: II TM distance: >3 FB Neck ROM: full Cardiovascular Assessment: Pulmonary Assessment: Dental Assessment: Misc Assessment: Anesthesia Plan: ASA 2 general, with a(n) intravenous induction 69 yo nonsmoker remotely s/p hysterectomy now with symptomatic vaginal prolapse and sress urinary incontinence for repair. Reports that she fractured her right humerus and requests no BP cuff on thatarm. Discussed risks/benefits GA/LMA Informed Consent: Anesthetic plan and risks discussed with patient. Use of blood products discussed with patient who. Plan discussed with MECHANICAL INSPECTOR. PAT Clinic Note documented in this encounter Plan of Treatment Not on file documented as of this encounter Visit Diagnoses Not on filedocumented in this encounter Administered Medications Inactive Administered Medications - up to 3 most recent administrations Medication Order MAR Action Action Date Dose Rate Site ceFAZolin (ANCEF) 2g in dextrose 5% 100 mL 2 g, Intravenous, ONCE, 1 dose, On 09/23/19 at 1445, Administer over 30 Minutes, Redose every 3 hours if CrCl is greater than 20. Redose every 8 hours if CrCl is less than 20., Day of Surgery (Day of Procedure), Indication for (Active or Suspected): Prophylaxis Given 09/23/2019 5:09 PM EST 2 g dexamethasone (DECADRON) injection Intravenous, PRN, Starting on Sun09/23/19 at 1710, Until Sun09/23/19 at 210, Anesthesia Intra-op, Routine Given 09/23/2019 5:10 PM EST 4 mg dexmedetomidine (PRECEDEX) injection PRN, Starting on Sun09/23/19 at 1725, Until Sun09/23/19 at 210, Anesthesia Intra-op, Routine Given 09/23/2019 7:01 PM EST 4 mcg Given 09/23/2019 5:25 PM EST 4 mcg ePHEDrine 5 mg/mL multi-dose injection Intravenous, PRN, Starting on Sun09/23/19 at 1736, Until Sun09/23/19 at 2100, Anesthesia Intra-op, Routine Given 09/23/2019 5:36 PM EST 5 mg fentaNYL 50 mcg/mL multi-dose injection Intravenous, PRN, Starting on Sun09/23/19 at 1721, Until Sun09/23/19 at 210, Anesthesia Intra-op, Routine Given 09/23/2019 6:49 PM EST 25 mcg Given 09/23/2019 6:18 PM EST 25 mcg Given 09/23/2019 5:24 PM EST 25 mcg heparin (Porcine) subcutaneous injection 5,000 Units 5,000 Units, Subcutaneous, ONCE, 1 dose, On Sun09/23/19 at 1445, Day of Surgery (Day of Procedure), Routine Given 09/23/2019 5:15 PM EST 5,000 Un its ketorolac (TORADOL) injection PRN, Starting on Sun09/23/19 at 1950, Until Sun09/23/19 at 210, Anesthesia Intra-op, Routine Given 09/23/2019 7:50 PM EST 15 mg lactated ringers infusion CONTINUOUS PRN, Starting on Sun09/23/19 at 1530, Until Sun09/23/19 at 210, Anesthesia Intra-op New Bag 09/23/2019 3:30 PM EST lidocaine (PF) (XYLOCAINE) 100 mg/5 mL (2 %) injection Intravenous, PRN, Starting on Sun09/23/19 at 1701, Until Sun09/23/19 at 210, Anesthesia Intra-op, Routine Given 09/23/2019 5:01 PM EST 100 mg ondansetron (ZOFRAN) injection Intravenous, PRN, Starting on Sun09/23/19 at 1718, Until Sun09/23/19 at 210, Anesthesia Intra-op, Routine Given 09/23/2019 7:19 PM EST 4 mg Given 09/23/2019 5:18 PM EST 4 mg PHENYLephrine in NS (PF) (JUAN DIEGO-SYNEPHRINE) 0.8 mg/10 mL (80 mcg/mL) multi-dose injection Syrg Intravenous, PRN, Starting on Sun09/23/19 at 1917, Until Sun09/23/19 at 210, Anesthesia Intra-op, Routine Given 09/23/2019 7:17 PM EST 80 mcg propofol (DIPRIVAN) 10 mg/mL bolus injection (Anesthesia) Intravenous, PRN, Starting on Sun09/23/19 at 1701, Until Sun09/23/19 at 2100, Anesthesia Intra-op Given 09/23/2019 7:01 PM EST 20 mg Given 09/23/2019 6:49 PM EST 20 mg Given 09/23/2019 6:18 PM EST 20 mg propofol (DIPRIVAN) infusion Intravenous, CONTINUOUS PRN, Starting on Sun09/23/19 at 1701, Until Sun09/23/19 at 2100, Anesthesia Intra-op, Routine Rate/Dose Change 09/23/2019 7:45 PM EST 15 mcg/kg/min 5.2 mL/hr Rate/Dose Change 09/23/2019 5:36 PM EST 30 mcg/kg/min 10.3 mL/hr New Bag 09/23/2019 5:01 PM EST 50 mcg/kg/min 17.2 mL/hr documented in this encounter Care Teams Dispatch Supervisor Relationship Specialty Start Date End Date Arnoldo Lopez DO [address] [place] [id number] PCP - General Family Medicine 06/17/19 documented as of this encounter
--- OUTSIDE RECORDS SUMMARY | 2024-07-28 15:42 | XMS_ITS | Data Portability ---
Author Organization [place] [facility], [facility] Address [address] [place] [address] Assessment Encounter Date Assessment Date Assessment LastModified by Organization Details LastModified Time 07/16/2024 07/16/2024 Declines Mammogram referral Colonoscopy: No more [place] per Evita Leon Dexa scanning [email or web address] Not available 07/16/2024 08:46:11 Plan of Treatment Reminders Order Date Submit Date Provider Last Modified By Organization Details Last Modified Time Details Appointments Follow Up 30 2023 01:30P M Not available Not available Not available Lab hemoglobi n A1C, fingersti ck 2023 024 [email or web address] [facility], [address], [place], [address], 07/16/2024 11:14:53 albumin/c reatinine , ratio, urine - [address] [email or web address] (Registration ), [address] [place] [address] [place], [address], 07/23/2024 08:46:17 BMP, serum or plasma - [address] [email or web address] (Registration ), [address] [place] [address] [place], [address], 07/23/2024 08:46:17 magnesium , serum or plasma - [address] [facility] (Registration ), [address] [place] [address] [place], [address], 07/23/2024 08:46:17 Referral None recorded. Procedures None recorded. Surgeries None recorded. Imaging None recorded. Medication Orders triamcino lone acetonide 0.1 % topical cream 2023 024 [email or web address] [id number], [address] [place] [address], [id number], 07/16/2024 14:10:34 glipizide ER 5 mg tablet, extended release 24 hr [address] [id number], [address] [place] [address], [id number], 07/16/2024 14:10:34 FreeStyle Lite Strips [address] [facility][id number], [address] [place] [address], [id number], 07/16/2024 14:10:34 amlodipin e 5 mg tablet [address] [id number], [address] [place] [address], [id number], 07/16/2024 14:10:34 Patient TargetsNo targets recorded. Patient Instructions Encounter Date Encounter Id Patient Instructions Last Modified By Organization Details Last Modified Time 07/16/2024 [id number] If rash doesn't improve within a week of using steroid cream, or is getting worse, then call and I will send anti-fungal as alternative. If BG is still elevated in 1-month > 160 average each day let us know and we can increase the medication at that time. [email or web address] Not available 07/16/2024 08:50:00 Reason for Referral None Reported. Results Created Date Observation Date Name Description Value Unit Range Abnormal Flag Note LastModifiedBy Organization Detail LastModifiedTime 07/16/20 24 07/16/2024 MAGNE SIUM magnesium 1.8 mg/dL 1.8-2. 4 normal Not Available [address] , [place], [address] 07/16/2024 16:23:16 07/16/20 24 07/16/2024 MICRO ALBUM IN microalbumin 7.1 mg/L 1.30-2 0.0 normal Not Available [address] [place], [address] 07/17/2024 16:30:46 07/16/20 24 07/16/2024 MICRO ALBUM IN creatinine urine 33.96 mg/dL Not Available Wilber montilla [address] , [place], [address] 07/17/2024 16:30:46 07/16/20 24 07/16/2024 MICRO ALBUM IN microalb ug/mg crea 20.9 ug/mg _cr Kristy l: <30 ug/mg Crea Micro album inuri a: 30-30 0 ug/mg Crea Clini sarahi album inuri a: >300 ug/mg Crea Not Available [address] , [place], [address] 07/17/2024 16:30:46 07/16/20 24 07/16/2024 hemog lobin A1C, finge rstic k hemoglobin A1C 8.2 % <5.7 Not Available [facility] [address] , [place], [address], 07/16/2024 06:38:46 Result Notes None recorded. Problems Name Problem SNOMED Code Status Onset Date Resolution Date Notes Provider Name and Address Organization Details Recorded Time Lower abdominal pain 24721791 Active 2022 Problem Code: R10.30; Problem Code Type: ICD-10; Not Available [facility] 06:02:03 Otalgia of left ear 9303890479 Active 2022 Problem Code: H92.02; Problem Code Type: ICD-10; Not Available [facility] 3 06:02:03 Dizziness and giddiness 279275273 Active 2022 Problem Code: R42; Problem Code Type: ICD-10; Not Available [facility] 3 06:02:03 Type 2 diabetes mellitus 17127599 Active 2023 MERE MCKEON MA null, [facility] 4 08:45:05 Hypertensi ve disorder 57892467 Active 2023 MERE MCKEON MA null, [facility] 4 08:45:17 Vaginal wall prolapse 418286670 Active 2023 MERE MCKEON MA null, [facility] 4 08:45:45 Low back pain 872065534 Active 2023 MERE MCKEON MA null, [facility] 4 08:45:57 Essential hypertensi on 51542728 Active 2023 MAKENNA LARSEN [address], [place], [address] , [facility] 4 08:28:37 Pruritic rash 01793132 Active [address], [place], [address] , [facility] 4 08:35:40 Hyponatrem ia 93202936 Active 2023 MAKENNA LARSEN [address], [place], [address] , [facility] 4 14:00:00 Problem Notes None recorded. Procedures Surgical History Date Name Laterality Status Provider Name and Address Organization Details Recorded Time 9 vaginectomy completed MERE MCKEON MA [facility] 04/30/2024 08:47:03 9 colpocleisis completed MERE MCKEON MA [facility] 04/30/2024 08:47:24 0 Hysterectomy completed MERE MCKEON MA [facility] 04/30/2024 08:47:41 9 Appendectomy completed MERE MCKEON MA [facility] 04/30/2024 08:47:58 Imaging Results None recorded. Procedure Notes None recorded. Medical Equipment None Reported. Allergies Allergen ID Allergen Name Allergen Category Reaction Reaction Severity Criticality Documentation Date Start Date Code Code System Note Provider Name and Address Organization Details Recorded Time 42866 fluticaso ne Not available rash mild Not available 09/07/20232022 33179 RxNorm Not Available [facility] 3 16:33:37 53854 metformin hydrochlo ride medicatio n Not available Not available Not available 09/07/20232022 94087 3 RxNorm Not Available [facility] 3 16:33:37 52997 pineapple allergeni c extract food,medi cation Not available Not available Not available 09/07/20232022 81339 5 RxNorm Not Available [facility] 3 16:33:37 94915 oxycodone hydrochlo ride medicatio n Not available Not available Not available 09/07/20232022 84352 RxNorm Aller gyCod e: '1790 533'; Aller gyNam e: 'OXYC ODONE '; Aller gyCon ceptT ype: 'RX Norm' ; Not Available [facility] 3 16:33:38 89610 aloe extract food,medi cation Not available Not available Not available 09/07/20232022 42424 RxNorm Aller gyCod e: '7021 32620 33'; Aller gyNam e: 'ALOE '; Aller gyCon ceptT ype: 'NDC' ; Not Available [facility] 3 16:33:38 99180 Iodinated contrast media (substanc e) medicatio n tachycard ia Not available Not available 07/16/2024 57454 2003 SNOMED MAKENNA LARSEN [address], [place], [address] [place] [address] 4 06:29:39 41495 papaya extract food,medi cation Not available Not available Not available 07/16/[address], [place], [address], [facility] 4 06:29:55 28468 tree and shrub pollen environme nt,medica tion Not available Not available Not available 07/16/[address], [place], [address], [facility] 4 06:30:06 84588 wool environme nt Not available Not available Not available 07/16/[address], [place], [address], [facility] 4 06:30:12 Medications Name Sig Start Date Stop Date Status Note LastModified by Organization Details LastModified Time acetaminoph en 325 mg tablet Take 2 tablets every 6 hours by oral route as needed. active Not Available Not Available No t Available diltiazem CD 180 mg capsule,ext ended release 24 hr TAKE 2 CAPSULES BY MOUTH DAILY active Not Available Not Available No t Available glipizide ER 5 mg tablet, extended release 24 hr TAKE 1 TABLET BY MOUTH EVERY DAY active Not Available Not Available No t Available meclizine 12.5 mg tablet Take 1 tablet by mouth at bedtime as needed for vertigo. Can take 1 tablet during the day if toleratin g side effect of drowsines s 04/14 completed Not Available Not Available Not Available amlodipine 5 mg tablet TAKE 1 TABLET BY MOUTH EVERY DAY active Not Available Not Available No t Available triamcinolo ne acetonide 0.1 % topical cream APPLY THIN LAYER TOPICALLY TO THE AFFECTED AREA TWICE DAILY active Not Available Not Available No t Available irbesartan 150 mg tablet Take 1 tablet every day by oral route. active Not Available Not Available No t Available fluticasone propionate 50 mcg/actuati on nasal spray,suspe nsion Chapman 1 spray into both nostrils twice a day 04/12 completed Not Available Not Available Not Available docusate sodium 100 mg tablet Take 1 tablet every day by oral route. active Not Available Not Available No t Available simethicone 80 mg chewable tablet Take 1 tablet as needed by oral route. active Not Available Not Available No t Available FreeStyle Unistik 2 1 daily as needed active Not Available Not Available No t Available multivitami n 1 tablet daily active Not Available Not Available No t Available FreeStyle Lite Strips USE 1 STIP TO CHECK BLOOD SUGAR LEVELS IN THE MORNING NEEDED active Not Available Not Available No t Available FreeStyle Lite Strips 1 Strip daily active Not Available Not Available No t Available aspirin 81 mg capsule Take 1 capsule every day by oral route. active Not Available Not Available No t Available FreeStyle Manjinder 3 [employer] active Not Available Not Available Not Available Vitals Date Recorded Body height Body mass index (BMI) Body weight Body temperature Oxygen saturation Oxygen saturation in Arterial blood by Pulse oximetry Heart rate Systolic blood pressure Diastolic blood pressure Provider Name and Address Organization Details Last Updated DateTime 4 143.51 cm 29.2 kg/m2 34310.6 3 g 97.5 [degF] 99 % 99 % 94 /min 130 mm[Hg] 74 mm[Hg] MERE MCKEON MA [facility] 07:56:22 Social History Question Answer Notes LastModified by Organizat ion Details LastModified Time Tobacco Smoking Status Former Smoker MERE MCKEON MA null, [facility] 07/16/2024 07:58:49 When Did You Quit Smoking? 16+yearssinc elastcigaret te Information not available 07/16/2024 What Was The Date Of Your Most Recent Tobacco Screening? 07/16/2024 Information not available 07/16/2024 Sex: Female Functional Status None recorded. Mental Status None recorded. Family History Nothing Reported. Medical History No medical history recorded. Gynecological HistoryNo gynecological history recorded. Obstetrics History GPAL:G 0 P 0 0 0 0 Immunizations Vaccine Type Date Status Provider Name and Address Organization Details Recorded Time Tdap 11/25/2018 completed Not Available [facility] 06:04:29 COVID-19, mRNA, LNP-S, PF, 100 mcg/0.5mL dose or 50 mcg/0.25mL dose 12/23/2020 completed Not Available [facility] 09/07/2023 06:04:29 COVID-19, mRNA, LNP-S, PF, 100 mcg/0.5mL dose or 50 mcg/0.25mL dose 01/21/2021 completed Not Available [facility] 09/07/2023 06:04:29 COVID-19, mRNA, LNP-S, PF, 100 mcg/0.5mL dose or 50 mcg/0.25mL dose 09/26/2021 completed Not Available [facility] 09/07/2023 06:04:29 Past Encounters Encounter ID Performer Location Encounter Start Date Encounter Closed Date Diagnosis/Indication Diagnosis SNOMED-CT Code Diagnosis ICD10 Code [id number] MAKENNA LARSEN [address] [place] [address] 07/16/2024 07:42:10 07/16/2024 09:10:17 Type 2 diabetes mellitus 25064881 E11.9 Essential hypertension 26954802 I10 Pruritic rash 62993398 L 28.2 Osteoporos is screening declined 2070074000 81123 Z53.20 Breast can cer screening declined 8405119732 8987516 Z53.20 Colon canc er screening declined 6723447804 9109 Z53.20 Health Concerns Section Related Observation LastModified by Organization Detai ls LastModified Time None Recorded Concern Status LastModified by Organization Details LastModified Time None Recorded Advance Directives Directive None Recorded Payers Encounter Date Sequence Insurance Name Policy Number Policy Mao Covered Member ID Mao Member ID Guarantor Name 07/16/2024 2 [id number] (MEDICARE SUPPLEMENT) Evita Aguiar [id number] Evita Aguiar 07/16/2024 1 [place] [employer] Evita Aguiar [id number] Evita Aguiar Notes Date Note Type Note Provider Name and Address Organization Details Recorded Time 07/16/2024 text/html HPI Notes: Pt, 74-F, here to establish care as new patient: PMH notable as below. Dmii: Pt. has been well controlled with diet only. Last Hga1c I can see from prior practice was 6.5%. No lipid labs mentioned or evident in med records sent. HTN: On irbesartan and amlodipine and diltiazem. Alcohol: Reports 2-drinks per day Skin: New rash about 2-3 months ago, appeared first on lateral thigh, patchy, mildly itchy, exoderm helps with itch, but does not help rash go away. MAKENNA LARSEN [address], [place], [address], [facility]. 07/16/2024 17:51:49 OBGyn Episode No OBEpisode recorded.
== END 2024-07-28 15:38 | disposition home or self-care (01) ==
LOC: LBO 15:41
PROVIDERS: PCP Neuromusculoskeletal Medicine & OMM; Visit Provider Student in an Organized Health Care Education/Training Program
DX: E87.1 Hypo-osmolality and hyponatremia (principal)
CPT/HCPCS: 36415; 80048

== ENCOUNTER 2025-07-06 16:25 | Outpatient (REF) | payer MEDICARE, SELFPAY ==
[2025-07-06 18:06] LABS: Abs Immature Grans 0.03 10^3/uL (0.0-0.06); HCT 37.7 % (36.0-46.0); HGB 13.0 g/dL (11.2-15.7); Immature Grans % 0.4 %; MCH 32.6 pg (27.0-33.0); MCHC 34.5 % (32.0-36.0); MCV 95 fL (80-95); MPV 9.7 fL (8.0-11.0); Platelet Count 315 10^3/uL (130-400); RBC 3.99 10^6/uL (3.93-5.22); RDW 12.4 % (11.7-14.6); RDW-SD 43.4 fL; WBC 8.23 10^3/uL (4.4-10.8)
[2025-07-06 18:23] LABS: Anion Gap 9.8 mmol/L (3-11); BUN 13 mg/dL (7-18); CO2 28.2 mmol/L (21.0-32.0); Calcium 9.0 mg/dL (8.5-10.1); Chloride 96 mmol/L (98-107); Estimated GFR 92.39 (mL/min/1.73m2); Glucose 157 mg/dL (74-106); Potassium 3.4 mmol/L (3.5-5.1); Sodium 134 mmol/L (136-145); TSH (W/Ref FT4) 1.05 uIU/mL (0.36-3.74)
[2025-07-06 18:26] LABS: COMMENT (LAB VIEW ONLY) 79.83 mg/dL; Microalb ug/mg Crea 18.7 ug/mg Cr
== END 2025-07-06 16:26 | disposition home or self-care (01) ==
LOC: NCHCN 16:25
PROVIDERS: PCP Neuromusculoskeletal Medicine & OMM; Visit Provider Student in an Organized Health Care Education/Training Program
DX: E11.9 Type 2 diabetes mellitus without complications (principal)
CPT/HCPCS: 80048; 82043; 82570; 84443; 85025